=== PATIENT | female | born 1945 | race Caucasian/White ===

== ENCOUNTER 2024-09-13 12:15 | Inpatient (IN) | payer MEDICARE, OTHER, SELFPAY ==
[2024-09-13] VITALS (36 sets, daily range): BP systolic 97–153; BP diastolic 63–102; PULSE 74–183; TEMP 36.1–36.4; O2SAT 63–100; BMI 32.3; BMI 18.0
--- NOTE | 2024-09-13 12:19 | XR_ITS ---
The [address] [address] Patient Name: FARZANA SEBASTIAN MRN: [id number] date: 1945 Sex: F Assigned Patient Location: ER Current Patient Location: ED.MAIN Accession/Order Number: [id number] Exam Date: 09/13/2024 12:15 Report Date: 09/13/2024 12:58 At the request of: WONG MILLER Procedure: XR chest 1V EXAM: Portable chest REASON FOR EXAM: Shortness of breath and weakness. TECHNIQUE: A portable frontal view of the chest was obtained. COMPARISON: None. FINDINGS: The lungs are well-inflated. Dense airspace consolidation is seen in the right lung base and patchy airspace consolidation is seen in the upper lobes. There is question of a small left pleural effusion. The heart is enlarged. There is no mass or pathologic adenopathy. Osseous structures are normal. XR/XR chest 1V IMPRESSION: The overall appearance is most consistent with multi lobar bilateral pneumonia. Note is made that a CTA chest chest is scheduled to be performed today, which will give further diagnostic information regarding the process occurring in the lungs. Electronically authenticated by: AAN LÓPEZ Date: 09/13/2024 12:58
--- NOTE | 2024-09-13 12:20 | CT_ITS ---
The [address] [address] Patient Name: FARZANA SEBASTIAN MRN: [id number] date: 1945 Sex: F Assigned Patient Location: ED.MAIN Current Patient Location: ED.MAIN Accession/Order Number: [id number] Exam Date: 09/13/2024 13:45 Report Date: 09/13/2024 14:11 At the request of: WONG MILLER Procedure: CT angio chest EXAM: CT angio chest HISTORY: sob COMPARISON: None. TECHNIQUE: Following the intravenous administration of 100 cc of Omnipaque 350, axial soft tissue windows of the chest were obtained with coronal and sagittal reformats. 3-D MIPS reconstructions were created and reviewed. CT dose reduction technique was used including Automated Exposure Control. Findings: The heart isn't enlarged. Coronary artery calcifications. No pericardial effusion. The thoracic aorta is normal caliber with mild atherosclerotic disease. There is adequate opacification of the pulmonary arteries. No evidence of pulmonary embolism. No evidence of pulmonary embolism. The central airways are patent. No pneumothorax. Moderate bilateral pleural effusions. Patchy groundglass opacities. Regions of interlobular septal thickening. Mild right middle lobe and bilateral lower lobe atelectasis. Large hiatal hernia. No aggressive sclerotic or lytic osseous lesions. Multilevel degenerative thoracic spondylosis. CT/CT angio chest IMPRESSION: 1. No pulmonary embolism. 2. Bilateral pleural effusions with patchy groundglass opacities and interlobular septal thickening likely relating to pulmonary edema. 3. Other nonemergent findings, as described above. Electronically authenticated by: BONIFACIO ANTONY Date: 09/13/2024 14:11
--- NOTE | 2024-09-13 12:21 | ECG_ITS ---
The [facility] Test Date: 2024-09-13 Pat Name: Indira Pereira Department: Room: - Gender: Female Attorney General: : 1945 Requested By: [id number] Order Number: [id number] Reading MD: BRIA BATISTA Measurements Intervals [place] Rate: 95 P: 56 VT: 184 QRS: -35 QRSD: 102 T: 57 QT: 360 QTc: 413 Interpretive Statements 1100 Sinus rhythm 3234 Anteroseptal myocardial infarction, age undetermined 7200 Abnormal left axis deviation 8101 Low QRS voltage in limb leads 9150 abnormal ECG No previous ECG available for comparison Electronically Signed On 09-16-2024 20:16:51 EST by BRIA BATISTA
--- NOTE | 2024-09-13 12:23 | ED_ITS ---
HPI HPI - General Adult General Chief complaint: Shortness of Breath/Dyspnea Stated complaint: GENERAL WEAKNESS Time Seen by Provider: 09/13/24 12:18 History of Present Illness HPI narrative: Patient is a 78-year-old female who is presenting to the ER from the [facility] with acute respiratory distress. Patient is there for hip fracture and hip infection. Approximately 1 hour prior to arrival, patient had more of an acute shortness of breath. Patient normally was wearing 4 L nasal cannula. Patient presented by EMS wearing a CPAP. Patient was given 2 DuoNeb breathing treatments prior to arrival. Patient has a 20-gauge IV in the left AC. Patient normally gets albuterol nebulizer treatments. Patient also is on Suboxone. Patient is on Wellbutrin, BuSpar. Patient is receiving IV vancomycin. It is reported by EMS that patient did have a hip fracture, and now she has an infection. Patient did have a fracture on July 21 of the left femur. It appears from looking at paperwork that patient may have had a fracture around a previous left hip replacement, this will be clarified with the patient when she is speaking better and able to talk better. Patient did arrive on a CPAP. Patient is responding and answering questions and following commands, GCS 15. Patient has recent diagnosis of pyoderma gangrenosum. Patient has history of anemia, CHF, hypokalemia, cardiomyopathy, pressure ulcers to the sacrum noted on July 21 of this year as well, multiple valve insufficiency. Is reported by EMS that patient is a full code. Patient did receive Solu- Medrol and 2 DuoNeb breathing treatments prior to arrival. All systems are negative except as noted/marked. All systems reviewed and otherwise negative. Nurses note and vital signs reviewed and patient is not hypoxic. General: The patient moderate respiratory distress, patient is able to speak in a few words at a time, patient does have a CPAP in place. Patient is resting uncomfortably on cart. Patient is not toxic, lethargic, or listless Skin: Warm, dry, no pallor noted. There is no rash noted. No petechiae, purpura. Skin was not assessed initially, skin will be assessed once respiratory status improves, and patient sweatpants will be taken down, placed in gown, and evaluate source Head: Normocephalic, atraumatic Eye: Normal conjunctiva, no drainage, EOMI. PERRL Ears, Nose, Mouth, and Throat: oral mucosa is moist. Nares patent. Mouth without vesicles. Cardiovascular: Increased regular Rate and Rhythm, no murmur, gallop, rub Respiratory: Patient is in mild to moderate distress respiratory;, + accessory muscle use, lungs are decreased bilateral, faint wheezing bilateral, minimal bilateral rales, no rhonchi Back: non-tender, no CVA tenderness bilaterally to percussion. No CT LS midline pain GI: no tenderness to palpation, no masses appreciated. No rebound, guarding, or rigidity noted. No distention Musculoskeletal: Patient has full range of motion of all of the extremities, no motor, sensory, or focal neurological deficits Neurological: A&O x4, normal speech Psychiatric: Cooperative Related Data Home Medications ?Medication ?Instructions ?Recorded ?Confirmed acetaminophen 500 mg capsule 1,000 mg PO Q8H PRN pain 09/13/24 09/13/24 albuterol sulfate 2.5 mg/3 mL 2.5 mg inhalation TID 09/13/24 09/13/24 (0.083 %) solution for nebulization alendronate 70 mg tablet 70 mg PO .COMPLEX 09/13/24 09/13/24 ascorbic acid (vitamin C) 500 mg 500 mg PO DAILY 09/13/24 09/13/24 tablet (C-500) buprenorphine 8 mg-naloxone 2 mg 1 film sublingual BID 09/13/24 09/13/24 sublingual film bupropion HCl 300 mg 24 hr tablet, 300 mg PO DAILY 09/13/24 09/13/24 extended release buspirone 5 mg tablet 5 mg PO BID 09/13/24 09/13/24 cholecalciferol (vitamin D3) 125 125 mcg PO DAILY 09/13/24 09/13/24 mcg (5,000 unit) capsule diclofenac sodium 1 % topical gel 2 g topical BID 09/13/24 09/13/24 duloxetine 60 mg capsule,delayed 60 mg PO DAILY 09/13/24 09/13/24 release (Cymbalta) ferrous sulfate 325 mg (65 mg 325 mg PO DAILY 09/13/24 09/13/24 iron) tablet (Feosol) gabapentin 800 mg tablet 800 mg PO BID 09/13/24 09/13/24 magnesium chloride 71.5 mg 71.5 mg PO DAILY 09/13/24 09/13/24 (magnesium chloride) tablet,delayed release (Nu-Mag) melatonin 5 mg capsule 5 mg PO .hs 09/13/24 09/13/24 meloxicam 7.5 mg tablet 7.5 mg PO DAILY 09/13/24 09/13/24 multivitamin (Daily Multi-Vitamin 1 tab PO DAILY 09/13/24 09/13/24 tablet) nystatin 100,000 unit/gram topical 1 applic topical BID 09/13/24 09/13/24 powder (Nyamyc) polyethylene glycol 3350 17 gram 17 g PO DAILY 09/13/24 09/13/24 oral powder packet (Gavilax) potassium chloride 20 mEq 20 meq PO DAILY 09/13/24 09/13/24 tablet,extended release (K-Tab) primidone 50 mg tablet 50 mg PO DAILY 09/13/24 09/13/24 sennosides 8.6 mg-docusate sodium 1 tab-cap PO BID 09/13/24 09/13/24 50 mg tablet (Docuzen) tramadol 50 mg tablet 50 mg PO BID 09/13/24 09/13/24 whey protein isolate 6 gram-25 1 ea PO DAILY 09/13/24 09/13/24 kcal/7 gram oral powder (Beneprotein) Allergies Allergy/AdvReac Type Severity Reaction Status Date / Time No Known Drug Allergies Allergy Verified 09/13/24 12:41 Opioid HPI Opioid Management Most Recent Opioid Data: Last Pain Scale 0 09/13/24 18:32 09/13/24 Last Pain Assessment 09/13/24 19:00 Last ORT Total Score 4 09/13/24 17:40 09/13/24 Last ORT Risk Category Moderate Risk 09/13/24 17:40 09/13/24 PFSH PFSH Social History Highest level of school completed/degree received: Bachelor's degree Little interest or pleasure in doing things: several days Feeling down, depressed, or hopeless: several days Do you think of yourself as: straight/heterosexual Gender Identity: female Exam Constitutional Vital Signs, click to edit/add: Last Vital Signs Temp 97.6 F 09/13/24 17:40 Pulse 83 09/13/24 17:40 Resp 18 09/13/24 17:40 BP 112/69 09/13/24 17:40 Pulse Ox 90 L 09/13/24 17:40 O2 Del Method Nasal Cannula 09/13/24 17:40 O2 Flow Rate 5 09/13/24 17:40 Course Vital Signs Vital signs: Vital Signs Pulse Rate 183 H 09/13/24 12:22 Respiratory Rate 24 H 09/13/24 12:22 Pulse Oximetry 88 L 09/13/24 12:22 Temperature 97.6 F 09/13/24 17:40 Pulse Rate 83 09/13/24 17:40 Respiratory Rate 18 09/13/24 17:40 Blood Pressure 112/69 09/13/24 17:40 Pulse Oximetry 90 L 09/13/24 17:40 Oxygen Delivery Method Nasal Cannula 09/13/24 17:40 Oxygen Delivery Flow Rate 5 09/13/24 17:40 Medical Decision Making MDM Narrative Medical decision making narrative: ABG was done initially, initial chest x-ray shows right lower lobe infiltrate. Patient will also have a CT of the chest secondary to recent fracture, patient has been in nursing facility and rehab to rule out PE. Additional paperwork has been obtained from the [facility]. Patient has been on vancomycin. It is noted that at 11:50 AM this morning, patient had sudden onset of acute respiratory distress, was dusky, wheezing, lower pulse ox on room air. Patient was on no oxygen prior to this event. Patient was placed on 4 L of oxygen when EMS had arrived. Patient has no known allergies. At 6:47 AM nurse documented at 647AM, patient was documented being lethargic with periods of confusion, occasional cough with scattered rhonchi, PCP was notified. New orders for urine culture and chest x-ray were placed. This was documented by Ileana Atkins, RN, BSN. 1400 patient has been receiving vancomycin. IV Zosyn has been ordered since patient has been in a rehab facility, nursing facility. CTA chest is still pe nding. CTA showed no obvious infiltrates, no PE. It did show bilateral small pleural effusions and possible early edema. Patient BNP is elevated. Wounds were evaluated. Patient has healing wounds to bilateral lower extremities, patient states are doing much better now than what they are. Patient has stage I and II ulcerations to anterior shins bilateral, wound dressings were just done today by wound care at the nursing facility at the [facility]. The wounds were taken down, but the Xeroform dressing was not removed. Patient also has a healing wound to left buttock, the dressing was evaluated, but the Xeroform dressing was not removed because they were just changes morning at the [facility]. Patient has diffuse stage I ulceration to her sacrum, no stage II signs. Patient states all of her wounds are doing much better than what they were. Patient has been receiving vancomycin for infected hardware where that was removed and replaced in the left leg. Patient was given a dose of Zosyn for what I thought initially was pneumonia on chest x-ray. Patient will be admitted for hypoxia, she is currently wearing 4 to 5 L of oxygen, maintaining over 92% but she does not normally wear oxygen. Patient be admitted to Dr. Cerrato. Dr. Cerrato came to see and evaluate the patient in the hospital in the ER. Multiple bedside visits were made to readdress and assess patient's oxygen, Talk to respiratory staff, help wean patient off the CPAP, help with oxygen settings, evaluating wounds, performing test, speaking to Dr. Mehta, admitting patient to the hospital Lab Data Lab results reviewed: Yes I reviewed the patient's lab results Labs: Lab Results 09/13/24 09/13/24 09/13/24 Range/Units 12:25 12:35 13:04 WBC 9.8 (4.0-11.0) 10^3/uL RBC 3.50 L (4.20-5.40) 10^6/uL Hgb 9.3 L (12.0-16.0) g/dL Hct 31.8 L (36.0-48.0) % MCV 90.9 (81.0-99.0) fL MCH 26.6 L (26.7-34.0) pg MCHC 29.2 L (29.9-35.2) g/dL RDW 16.4 H (11.0-15.0) % Plt Count 333 (150-450) 10^3/uL MPV 9.2 L (9.5-13.5) fL Neut % (Auto) 70.4 (43.0-75.0) % Lymph % (Auto) 22.7 (20.5-60.0) % [place] % (Auto) 5.3 (1.7-12.0) % Eos % (Auto) 0.9 (0.9-7.0) % Baso % (Auto) 0.2 (0.2-2.0) % Neut # (Auto) 6.9 H (1.4-6.5) 10^3/uL Lymph # (Auto) 2.2 (1.2-3.8) 10^3/uL [place] # (Auto) 0.5 (0.3-0.8) 10^3/uL Eos # (Auto) 0.1 (0.0-0.7) 10^3/uL Baso # (Auto) 0.0 (0.0-0.1) 10^3/uL Abs Immat Gran (auto) 0.05 H (0.00-0.03) 10^3/uL Imm/Tot Granulo (auto) 0.5 (0.0-0.5) % PT 12.4 H (9.0-11.6) sec INR 1.19 Puncture Site Lr ABG pH 7.358 (7.350-7.450) ABG pCO2 39.8 (35.0-45.0) mmHg ABG pO2 39.8 L* (80.0-100.0) mmHg ABG HCO3 22.4 (22.0-26.0) mmol/L ABG O2 Saturation 83.3 % ABG Base Excess -3.1 L (-2.0-2.0) mmol/L [place] Test Positive (POSITIVE) Expiratory Pressure +5 Sodium 134 L (136-145) mmol/L Potassium 4.8 (3.5-5.1) mmol/L Chloride 100 (98-107) mmol/L Carbon Dioxide 27.3 (21.0-32.0) mmol/L Anion Gap 11.5 BUN 20.0 H (7.0-18.0) mg/dL Creatinine 0.89 (0.55-1.02) mg/dL Est GFR ( Amer) >60 (>=60 mL/min/1.73m^2) Est GFR (Non-Af Amer) >60 (>=60 mL/min/1.73m^2) BUN/Creatinine Ratio 22.5 Glucose 151 H (74-106) mg/dL Lactate 2.9 H* (0.4-2.0) mmol/L Calcium 8.9 (8.5-10.1) mg/dL Total Bilirubin 0.5 (0.2-1.0) mg/dL AST 64 H (15-37) U/L ALT 20 (14-59) U/L Alkaline Phosphatase 374 H (46-116) U/L Troponin I High Sens 16.8 (4.0-51.3) pg/mL NT-Pro-B Natriuret Pep 53306.0 H* (<=1800.0) pg/mL Total Protein 6.6 (6.4-8.2) g/dL Albumin 2.0 L (3.4-5.0) g/dL Globulin 4.6 g/dL Albumin/Globulin Ratio 0.4 TSH 6.417 H (0.358-3.740) uIU/mL Thyroxine (T4) 6.10 (4.80-13.90) ug/dL POC Glucose 124 H (74-106) mg/dL I believe patient's blood gas is a venous blood gas, not arterial. Patient's pH was 7.35, O2 39, oxygen was low. BNP 14,300. Imaging Data CT scan - pelvis: Radiologist's impression: ITS Impressions Chest X-Ray 09/13/24 12:19 IMPRESSION: The overall appearance is most consistent with multi lobar bilateral pneumonia. Note is made that a CTA chest chest is scheduled to be performed today, which will give further diagnostic information regarding the process occurring in the lungs. Electronically authenticated by: ANA LÓPEZ Date: 09/13/2024 12:58 Chest CTA 09/13/24 12:20 IMPRESSION: 1. No pulmonary embolism. 2. Bilateral pleural effusions with patchy groundglass opacities and interlobular septal thickening likely relating to pulmonary edema. 3. Other nonemergent findings, as described above. Electronically authenticated by: BONIFACIO ANTONY Date: 09/13/2024 14:11 ECG Data Attestation: I personally reviewed and interpreted this ECG as follows: (EKG interpretation. Normal sinus rhythm at 95 beats a minute. Artifact noted secondary to respiratory distress. Left axis deviation. QTc of 413. Artifact noted. ) Discharge Plan Discharge Chief Complaint: Shortness of Breath/Dyspnea Clinical Impression: Hypoxia, Bilateral pneumonia Patient Disposition: Admitted As Inpatient Time of Disposition Decision: 14:10 Condition: Fair Discharge Date/Time: 09/13/24 16:30
[2024-09-13 12:36] LABS: pH ABG 7.358 (7.350-7.450)
[2024-09-13 12:37] LABS: ABG PCO2 39.8 mmHg (35.0-45.0); Allen Test POSITIVE (POSITIVE); Base Excess ABG -3.1 mmol/L (-2.0-2.0); HCO3 ABG 22.4 mmol/L (22.0-26.0); O2 Mode CPAP; Oxygen Saturation ABG 83.3 %; Puncture Site LR
[2024-09-13 12:39] LABS: PO2 ABG 39.8 mmHg (80.0-100.0)
[2024-09-13 12:47] LABS: Basophils Percent Auto 0.2 % (0.2-2.0); Eosinophils Absolute Auto 0.1 10^3/uL (0.0-0.7); Eosinophils Percent Auto 0.9 % (0.9-7.0); Hematocrit 31.8 % (36.0-48.0); Hemoglobin 9.3 g/dL (12.0-16.0); Immature Granulocytes Abs Auto 0.05 10^3/uL (0.00-0.03); Immature Granulocytes Pct Auto 0.5 % (0.0-0.5); Lymphocytes Absolute Auto 2.2 10^3/uL (1.2-3.8); Lymphocytes Percent Auto 22.7 % (20.5-60.0); Mean Corpuscular HGB Conc 29.2 g/dL (29.9-35.2); Mean Corpuscular Hemoglobin 26.6 pg (26.7-34.0); Mean Corpuscular Volume 90.9 fL (81.0-99.0); Mean Platelet Volume 9.2 fL (9.5-13.5); Monocytes Absolute Auto 0.5 10^3/uL (0.3-0.8); Monocytes Percent Auto 5.3 % (1.7-12.0); Neutrophils Absolute Auto 6.9 10^3/uL (1.4-6.5); Neutrophils Percent Auto 70.4 % (43.0-75.0); Platelet Count 333 10^3/uL (150-450); Red Cell Distribution Width 16.4 % (11.0-15.0); White Blood Count 9.8 10^3/uL (4.0-11.0)
[2024-09-13] MEDS: ONDANSETRON PF 4 MG/2 ML VIAL 8 MG IV (12:55)
[2024-09-13 13:00] LABS: INR 1.19; Prothrombin Time 12.4 sec (9.0-11.6)
[2024-09-13 13:03] LABS: Alanine Aminotransferase 20 U/L (14-59); Albumin Globulin Ratio 0.4; Alkaline Phosphatase 374 U/L (46-116); Anion Gap 11.5; Aspartate Amino Transferase 64 U/L (15-37); BUN Creatinine Ratio 22.5; Bilirubin Total 0.5 mg/dL (0.2-1.0); Calcium 8.9 mg/dL (8.5-10.1); Carbon Dioxide 27.3 mmol/L (21.0-32.0); Chloride 100 mmol/L (98-107); Estimated GFR (African America >60 (>=60 mL/min/1.73m^2); Estimated GFR (Non-African Ame >60 (>=60 mL/min/1.73m^2); Globulin 4.6 g/dL; Glucose 151 mg/dL (74-106); Potassium 4.8 mmol/L (3.5-5.1); Sodium 134 mmol/L (136-145); Total Protein 6.6 g/dL (6.4-8.2)
[2024-09-13 13:09] LABS: Troponin I High Sensitivity 16.8 pg/mL (4.0-51.3)
[2024-09-13 13:14] LABS: Glucometer 124 mg/dL (74-106)
--- NOTE | 2024-09-13 14:19 | SWNOTE1 ---
SW received a call from ED nurse and pt's daughter is asking about [facility] making them pay to hold bed. SW to go down and speak with daughter. Pt is at [facility] for rehab.
[2024-09-13] MEDS: PIPERACILLIN SODIUM/TAZOBACTAM 3.375 GM in 0.9 % SODIUM CHLORIDE 50 ML IV ×2 (14:25→21:49)
--- NOTE | 2024-09-13 15:23 | SWNOTE1 ---
SW received a call from Yash at [facility] and pt/family did not pay to hold the bed, therefore if pt is medically stable for discharge, a phone call will need to be made to [facility] and they will have to see if they have bed availability. If not a new facility will need to be found for pt to go to rehab.
[2024-09-13] MEDS: BUPRENORPHINE HCL/NALOXONE HCL 8-2 MG TABLET SUBL 1 TAB PO (16:28)
--- NOTE | 2024-09-13 16:58 | P.HP_ITS ---
HPI H&P: HPI History of Present Illness Chief complaint: WEAKNESS pneumonia, pleural effusion, hypoxia Narrative: Patient currently in a rehabilitation facility for hip fracture, started having increasing cough and shortness of breath. Patient found to have acute hypoxia with O2 sat of 81%, multifocal pneumonia with acute combined congestive heart failure and bilateral pleural effusions. When I saw patient in the medical surgical floor, resting fairly uncomfortably in bed, she is very cachectic, some moderate respiratory distress. She does state her breathing is feeling somewhat better. Opioid HPI Opioid Management Most Recent Pain and Opioid Data: Last Pain Scale 0 09/13/24 18:32 09/13/24 Last Pain Assessment 09/13/24 19:00 Last ORT Total Score 4 09/13/24 17:40 09/13/24 Last ORT Risk Category Moderate Risk 09/13/24 17:40 09/13/24 Review of Systems ROS Status of ROS 10 or more systems reviewed and unremark able except as noted in history and below PFSH PFSH Social History Highest level of school completed/degree received: Bachelor's degree Little interest or pleasure in doing things: several days Feeling down, depressed, or hopeless: several days Do you think of yourself as: straight/heterosexual Gender Identity: female Meds Home Medications and Allergies Home Medications ?Medication ?Instructions ?Recorded ?Confirmed ?Type acetaminophen 500 mg capsule 1,000 mg PO Q8H PRN pain 09/13/24 09/13/24 History albuterol sulfate 2.5 mg/3 mL 2.5 mg inhalation TID 09/13/24 09/13/24 History (0.083 %) solution for nebulization alendronate 70 mg tablet 70 mg PO .COMPLEX 09/13/24 09/13/24 History ascorbic acid (vitamin C) 500 mg 500 mg PO DAILY 09/13/24 09/13/24 History tablet (C-500) buprenorphine 8 mg-naloxone 2 mg 1 film sublingual BID 09/13/24 09/13/24 History sublingual film bupropion HCl 300 mg 24 hr tablet, 300 mg PO DAILY 09/13/24 09/13/24 History extended release buspirone 5 mg tablet 5 mg PO BID 09/13/24 09/13/24 History cholecalciferol (vitamin D3) 125 125 mcg PO DAILY 09/13/24 09/13/24 History mcg (5,000 unit) capsule diclofenac sodium 1 % topical gel 2 g topical BID 09/13/24 09/13/24 History duloxetine 60 mg capsule,delayed 60 mg PO DAILY 09/13/24 09/13/24 History release (Cymbalta) ferrous sulfate 325 mg (65 mg 325 mg PO DAILY 09/13/24 09/13/24 History iron) tablet (Feosol) gabapentin 800 mg tablet 800 mg PO BID 09/13/24 09/13/24 History magnesium chloride 71.5 mg 71.5 mg PO DAILY 09/13/24 09/13/24 History (magnesium chloride) tablet,delayed release (Nu-Mag) melatonin 5 mg capsule 5 mg PO .hs 09/13/24 09/13/24 History meloxicam 7.5 mg tablet 7.5 mg PO DAILY 09/13/24 09/13/24 History multivitamin (Daily Multi-Vitamin 1 tab PO DAILY 09/13/24 09/13/24 History tablet) nystatin 100,000 unit/gram topical 1 applic topical BID 09/13/24 09/13/24 History powder (Nyamyc) polyethylene glycol 3350 17 gram 17 g PO DAILY 09/13/24 09/13/24 History oral powder packet (Gavilax) potassium chloride 20 mEq 20 meq PO DAILY 09/13/24 09/13/24 History tablet,extended release (K-Tab) primidone 50 mg tablet 50 mg PO DAILY 09/13/24 09/13/24 History sennosides 8.6 mg-docusate sodium 1 tab-cap PO BID 09/13/24 09/13/24 History 50 mg tablet (Docuzen) tramadol 50 mg tablet 50 mg PO BID 09/13/24 09/13/24 History whey protein isolate 6 gram-25 1 ea PO DAILY 09/13/24 09/13/24 History kcal/7 gram oral powder (Beneprotein) Allergies Allergy/AdvReac Type Severity Reaction Status Date / Time No Known Drug Allergies Allergy Verified 09/13/24 12:41 Exam Constitutional Vital Signs, click to edit/add: Last Vital Signs Temp 97.0 F L 09/13/24 12:41 Pulse 88 09/13/24 16:20 Resp 13 09/13/24 16:20 BP 115/63 09/13/24 16:00 Pulse Ox 92 L 09/13/24 16:00 O2 Del Method CPAP 09/13/24 12:47 Documenting provider has reviewed patient's vital signs: yes Common normals: apparent distress (Moderate respiratory distress) Respiratory Common normals: abnormal respiratory effort (Moderate respiratory distress) Auscultation: rales and rhonchi Cardio Common normals: regular rhythm; irregular rate GI Common normals: Normal to inspection, nondistended, normoactive bowel sounds present Extremity Common normals: normal to inspection Results Labs Labs: Short CBC 09/13/24 Range/Units 12:35 WBC 9.8 (4.0-11.0) 10^3/uL Hgb 9.3 L (12.0-16.0) g/dL Hct 31.8 L (36.0-48.0) % Plt Count 333 (150-450) 10^3/uL BMP 09/13/24 12:35 Sodium 134 L Potassium 4.8 Chloride 100 Carbon Dioxide 27.3 BUN 20.0 H Creatinine 0.89 Glucose 151 H Calcium 8.9 Liver Function 09/13/24 Range/Units 12:35 Total Bilirubin 0.5 (0.2-1.0) mg/dL AST 64 H (15-37) U/L ALT 20 (14-59) U/L Alkaline Phosphatase 374 H (46-116) U/L Albumin 2.0 L (3.4-5.0) g/dL ABG ABG results: 09/13/24 12:25 ABG pH 7.358 ABG pCO2 39.8 ABG pO2 39.8 L* ABG HCO3 22.4 ABG O2 Saturation 83.3 ABG Base Excess -3.1 L Assessment and Plan Assessment and Plan (1) Bilateral pneumonia: (2) Hypoxia: Plan Admission findings: Uncontrolled hypertension, acute hypoxia with O2 sat of 81%, respiratory distress, elevated BNP, leukocytosis, elevated liver function tests, multifocal pneumonia on CT scan with acute combined congestive heart failure Acute combined congestive heart failure likely secondary to the pneumonia. IV Bumex tonight. Adjust dose or alternate medications in AM. Repeat BNP in a.m., also repeat high-sensitivity troponin Acute hypoxic respiratory failure secondary to multifocal pneumonia-IV antibiotics, try to obtain sputum culture, repeat CBC in a.m. Depression-continue with home medications Iron deficiency anemia follow daily Chronic pain syndrome-continue with home medications Admission status: Patient with acute hypoxic respiratory failure secondary to multifocal pneumonia leading to acute combined congestive heart failure-likely necessary treatment will span 2 midnights. Inpatient status.
[2024-09-13 17:36] LABS: Lactate/Lactic Acid 2.9 mmol/L (0.4-2.0)
[2024-09-13 17:57] LABS: Thyroid Stimulating Hormone 6.417 uIU/mL (0.358-3.740)
[2024-09-13] MEDS: IPRATROPIUM/ALBUTEROL SULFATE 3 ML AMPUL.NEB IH ×2 (19:52→23:12)
[2024-09-13] MEDS: METHYLPREDNISOLONE SOD SUCC PF 125 MG/2 ML VIAL IVP (19:53)
[2024-09-13] MEDS: LEVOFLOXACIN IN DEXTROSE 5 % 500 MG/100 ML PREMIX 100 MG IV (19:54)
[2024-09-13 20:00] LABS: Lactate/Lactic Acid 1.8 mmol/L (0.4-2.0)
[2024-09-13] MEDS: BUMETANIDE 10 MG in 0.9 % SODIUM CHLORIDE 160 ML 20 MG IV (20:30)
[2024-09-13 21:02] LABS: Influenza Virus A Antigen Negative; Influenza Virus B Antigen Negative; Internal Control Within Normal Limits; SARS-CoV-2 Ag NEGATIVE (NEGATIVE)
[2024-09-13 21:16] LABS: Glucometer 155 mg/dL (74-106)
[2024-09-13 21:32] LABS: Bilirubin Urine NEGATIVE (NEGATIVE); Blood Urine NEGATIVE (NEGATIVE); Clarity Urine CLEAR (CLEAR); Color Urine YELLOW (YELLOW); Glucose Urine UA NEGATIVE (NEGATIVE); Ketones Urine NEGATIVE (NEGATIVE); Leukocyte Esterase Urine NEGATIVE (NEGATIVE); Nitrite Urine NEGATIVE (NEGATIVE); Protein Urine 30 mg/dL (NEG/TRACE); Specific Gravity Urine 1.015 (1.005-1.025); Urobilinogen Urine 0.2 EU/dL (0.2-1.0)
[2024-09-13] MEDS: GABAPENTIN 400 MG CAPSULE 800 MG PO (21:40)
[2024-09-13 21:41] LABS: Bacteria Urine TRACE #/HPF (NONE SEEN); Cast Seen? NONE SEEN #/LPF (NONE SEEN); Crystals Seen? None Seen #/HPF (None Seen); Mucus Urine SMALL (NONE SEEN); RBC Urine 0-2 #/HPF (0-2); Squamous Epithelial Cell Urine MODERATE #/LPF (NONE/RARE); WBC Urine 0-2 #/HPF (NONE SEEN)
[2024-09-13] MEDS: SENNOSIDES/DOCUSATE SODIUM 1 TAB TABLET PO (21:41)
[2024-09-13] MEDS: PRIMIDONE 50 MG TABLET PO (21:41)
[2024-09-13] MEDS: BUSPIRONE HCL 10 MG TABLET 5 MG PO (21:41)
[2024-09-13] MEDS: PANTOPRAZOLE SODIUM 40 MG VIAL IV (21:46)
[2024-09-13] MEDS: INSULIN ASPART 300 UNIT/3 ML PEN SUBQ (21:47)
[2024-09-14] VITALS (23 sets, daily range): BP systolic 90–145; BP diastolic 62–83; PULSE 53–125; TEMP 36.2–36.7; O2SAT 72–99
[2024-09-14] MEDS: METHYLPREDNISOLONE SOD SUCC PF 125 MG/2 ML VIAL IVP ×2 (03:14→10:18)
[2024-09-14] MEDS: IPRATROPIUM/ALBUTEROL SULFATE 3 ML AMPUL.NEB IH ×2 (04:09→07:46)
[2024-09-14] MEDS: PIPERACILLIN SODIUM/TAZOBACTAM 3.375 GM in 0.9 % SODIUM CHLORIDE 50 ML IV (05:09)
[2024-09-14 06:58] LABS: Basophils Percent Auto 0.1 % (0.2-2.0); Hematocrit 38.8 % (36.0-48.0); Hemoglobin 11.7 g/dL (12.0-16.0); Immature Granulocytes Abs Auto 0.02 10^3/uL (0.00-0.03); Immature Granulocytes Pct Auto 0.2 % (0.0-0.5); Lymphocytes Absolute Auto 0.4 10^3/uL (1.2-3.8); Lymphocytes Percent Auto 5.4 % (20.5-60.0); Mean Corpuscular HGB Conc 30.2 g/dL (29.9-35.2); Mean Corpuscular Hemoglobin 26.5 pg (26.7-34.0); Mean Platelet Volume 9.3 fL (9.5-13.5); Monocytes Absolute Auto 0.2 10^3/uL (0.3-0.8); Neutrophils Absolute Auto 7.5 10^3/uL (1.4-6.5); Neutrophils Percent Auto 92.3 % (43.0-75.0); Platelet Count 304 10^3/uL (150-450); Red Blood Count 4.41 10^6/uL (4.20-5.40); Red Cell Distribution Width 15.9 % (11.0-15.0); White Blood Count 8.1 10^3/uL (4.0-11.0)
[2024-09-14 07:26] LABS: Alanine Aminotransferase 23 U/L (14-59); Albumin Globulin Ratio 0.4; Alkaline Phosphatase 321 U/L (46-116); Anion Gap 14.9; Aspartate Amino Transferase 45 U/L (15-37); BUN Creatinine Ratio 22.2; Bilirubin Total 0.4 mg/dL (0.2-1.0); Calcium 9.1 mg/dL (8.5-10.1); Carbon Dioxide 27.5 mmol/L (21.0-32.0); Chloride 99 mmol/L (98-107); Estimated GFR (African America >60 (>=60 mL/min/1.73m^2); Estimated GFR (Non-African Ame >60 (>=60 mL/min/1.73m^2); Globulin 4.7 g/dL; Glucose 123 mg/dL (74-106); Potassium 3.4 mmol/L (3.5-5.1); Sodium 138 mmol/L (136-145); Total Protein 6.7 g/dL (6.4-8.2); Troponin I High Sensitivity 12.7 pg/mL (4.0-51.3)
[2024-09-14 08:28] LABS: Glucometer 118 mg/dL (74-106)
[2024-09-14] MEDS: POLYETHYLENE GLYCOL 3350 17 GM POWDER PACKET PO (10:18)
[2024-09-14] MEDS: BUPROPION HCL 150 MG XL TABLET 24H 300 MG PO (10:18)
[2024-09-14] MEDS: DULOXETINE HCL 60 MG CAPSULE.DR PO (10:18)
[2024-09-14] MEDS: GABAPENTIN 400 MG CAPSULE 800 MG PO ×2 (10:19→22:33)
[2024-09-14] MEDS: MELOXICAM 7.5 MG TABLET PO (10:19)
[2024-09-14] MEDS: POTASSIUM CHLORIDE 10 MEQ ER TABLET 20 MEQ PO (10:19)
[2024-09-14] MEDS: SENNOSIDES/DOCUSATE SODIUM 1 TAB TABLET PO ×2 (10:19→22:33)
[2024-09-14] MEDS: MULTIVITAMIN TABLET 1 TAB PO (10:19)
[2024-09-14] MEDS: CHOLECALCIFEROL (VITAMIN D3) 125 MCG/5,000 UNIT TABLET PO (10:19)
[2024-09-14] MEDS: ASCORBIC ACID 500 MG TABLET PO (10:19)
[2024-09-14] MEDS: BUSPIRONE HCL 10 MG TABLET 5 MG PO ×2 (10:20→22:34)
[2024-09-14] MEDS: FERROUS SULFATE 325 MG TABLET PO (10:20)
[2024-09-14] MEDS: MAGNESIUM OXIDE 400 MG TABLET PO (10:20)
[2024-09-14] MEDS: BUPRENORPHINE HCL/NALOXONE HCL 8-2 MG TABLET SUBL 1 TAB SL ×2 (10:20→22:34)
[2024-09-14] MEDS: NYSTATIN 15 GM POWDER 1 APPLIC TOPICAL ×2 (10:21→22:36)
[2024-09-14] MEDS: DICLOFENAC SODIUM 1% 100 GM TUBE TOPICAL ×2 (10:22→22:36)
[2024-09-14 12:26] LABS: Glucometer 213 mg/dL (74-106)
[2024-09-14] MEDS: FUROSEMIDE 40 MG/4 ML VIAL IVP ×2 (12:33→22:33)
[2024-09-14] MEDS: INSULIN ASPART 300 UNIT/3 ML PEN SUBQ ×3 (12:34→22:35)
[2024-09-14] MEDS: OMEPRAZOLE 40 MG CAPSULE.DR PO (14:32)
[2024-09-14 16:31] LABS: Glucometer 153 mg/dL (74-106)
[2024-09-14] MEDS: METHYLPREDNISOLONE SOD SUCC PF 40 MG/ML VIAL IVP (19:40)
--- NOTE | 2024-09-14 21:29 | P.IMPN_ITS ---
Progress Note: A&P Assessment and Plan (1) Acute respiratory failure with hypoxia: Assessment and Plan: Improving. Now down to 2 L. Monitor closely. Wean off O2 as tolerated. (2) Acute on chronic diastolic (congestive) heart failure: Assessment and Plan: Volume overload on exam. Was on Bumex drip. Switch to IV lasix 40 q12. Monitor I/O, daily weight. ECHO pending. Repeat XR tomorrow. (3) Bilateral pneumonia: Assessment and Plan: Low suspicion for PNA. D/c Abx. Monitor w/o abx. Qualifiers: Pneumonia type: due to unspecified organism Lung location: unspecified part of lung Qualified Code(s): J18.9 - Pneumonia, unspecified organism (4) GERD (gastroesophageal reflux disease): Assessment and Plan: C/w omeprazole. Qualifiers: Esophagitis presence: without esophagitis Qualified Code(s): K21.9 - Gastro-esophageal reflux disease without esophagitis (5) Depression: Assessment and Plan: Stable mood. C/w home medications. Qualifiers: Depression Type: major depressive disorder Major depression recurrence: recurrent Active/Remission status: in full remission Qualified Code(s): F33.42 - Major depressive disorder, recurrent, in full remission (6) Severe protein-calorie malnutrition: Assessment and Plan: Poor nutritional status likely due to chronic disease burden, has low BMI of only 16, evidence of severe malnutrition with muscle wasting, loss of subcutaneous fat. Started on ensure. (7) Ambulatory dysfunction: Assessment and Plan: More or less bed bound since her Hip fracture last year. PT/OT eval. (8) Chronic skin ulcer, limited to breakdown of skin: Assessment and Plan: Chronic, improving as per patient. no signs of infection. c/w wound care, consult wound. Internal Medicine - PN: Subj Subjective Interval history: Seen and examined. Patient subjectively feeling better. Still SOB at rest and on exertion. Was on 4 L O2 in the morning and was subsequently titrated down to 2 L. No overnight events. Exam Constitutional Vital Signs, click to edit/add: Last Vital Signs Temp 97.6 F 09/14/24 19:43 Pulse 95 H 09/14/24 20:00 Resp 20 09/14/24 19:43 BP 90/62 09/14/24 19:43 Pulse Ox 93 L 09/14/24 20:17 O2 Del Method Nasal Cannula 09/14/24 20:17 O2 Flow Rate 2 09/14/24 20:17 General appearance: cooperative and comfortable Nutritional appearance: cachectic and underweight Respiratory Common normals: normal respiratory effort Other: Conversational dyspnea noted. Diminished lung sounds. Corae breath sounds. Cardio Common normals: regular rate, regular rhythm, S1 normal heart sound and S2 normal heart sound GI Common normals: Normal to inspection, nondistended, normoactive bowel sounds present, soft to palpation and non-tender Extremity Other: Chronic skin ulcerations b/l LE. Neuro Common normals: oriented x3, moves all extremities and no focal motor deficits Psych Common normals: mental status grossly normal, thought process normal, denies homicidal ideation and denies suicidal ideation Internal Medicine - PN: Obj Da Labs Labs: Laboratory Results - last 24 hr 09/13/24 09/14/24 09/14/24 20:45 06:43 08:26 WBC 8.1 RBC 4.41 Hgb 11.7 L Hct 38.8 MCV 88.0 MCH 26.5 L MCHC 30.2 RDW 15.9 H Plt Count 304 MPV 9.3 L Neut % (Auto) 92.3 H Lymph % (Auto) 5.4 L [place] % (Auto) 2.0 Eos % (Auto) 0.0 L Baso % (Auto) 0.1 L Neut # (Auto) 7.5 H Lymph # (Auto) 0.4 L [place] # (Auto) 0.2 L Eos # (Auto) 0.0 Baso # (Auto) 0.0 Abs Immat Gran (auto) 0.02 Imm/Tot Granulo (auto) 0.2 Sodium 138 Potassium 3.4 L Chloride 99 Carbon Dioxide 27.5 Anion Gap 14.9 BUN 18.0 Creatinine 0.81 Est GFR ( Amer) >60 Est GFR (Non-Af Amer) >60 BUN/Creatinine Ratio 22.2 Glucose 123 H Calcium 9.1 Total Bilirubin 0.4 AST 45 H ALT 23 Alkaline Phosphatase 321 H Troponin I High Sens 12.7 NT-Pro-B Natriuret Pep 16305.0 H* Total Protein 6.7 Albumin 2.0 L Globulin 4.7 Albumin/Globulin Ratio 0.4 Urine Color Yellow Urine Clarity Clear Urine pH 7.0 Ur Specific [place] 1.015 Urine Protein 30 A Urine Glucose (UA) Negative Urine Ketones Negative Urine Occult Blood Negative Urine Nitrite Negative Urine Bilirubin Negative Urine Urobilinogen 0.2 Ur Leukocyte Esterase Negative Urine RBC 0-2 Urine WBC 0-2 A Ur Squamous Epith Cells Moderate A Urine Crystals None seen Urine Bacteria Trace A Urine Casts None seen Urine Mucus Small A POC Glucose 118 H 09/14/24 09/14/24 12:23 16:25 WBC RBC Hgb Hct MCV MCH MCHC RDW Plt Count MPV Neut % (Auto) Lymph % (Auto) [place] % (Auto) Eos % (Auto) Baso % (Auto) Neut # (Auto) Lymph # (Auto) [place] # (Auto) Eos # (Auto) Baso # (Auto) Abs Immat Gran (auto) Imm/Tot Granulo (auto) Sodium Potassium Chloride Carbon Dioxide Anion Gap BUN Creatinine Est GFR ( Amer) Est GFR (Non-Af Amer) BUN/Creatinine Ratio Glucose Calcium Total Bilirubin AST ALT Alkaline Phosphatase Troponin I High Sens NT-Pro-B Natriuret Pep Total Protein Albumin Globulin Albumin/Globulin Ratio Urine Color Urine Clarity Urine pH Ur Specific [place] Urine Protein Urine Glucose (UA) Urine Ketones Urine Occult Blood Urine Nitrite Urine Bilirubin Urine Urobilinogen Ur Leukocyte Esterase Urine RBC Urine WBC Ur Squamous Epith Cells Urine Crystals Urine Bacteria Urine Casts Urine Mucus POC Glucose 213 H 153 H Urinary Catheter Management Urinary Catheter Management Urethral: Cath placed during this visit: yes Urethral indwelling: Yes Reason for continuing: measure accurate output Insertion date: 09/13/24 Insertion time: 18:00
[2024-09-14 21:49] LABS: Glucometer 155 mg/dL (74-106)
[2024-09-14] MEDS: PRIMIDONE 50 MG TABLET PO (22:34)
[2024-09-14] MEDS: INSULIN GLARGINE 300 UNIT/3 ML INSULN.PEN 10 UNIT SQ (22:34)
[2024-09-15] VITALS (21 sets, daily range): BP systolic 100–111; BP diastolic 54–65; PULSE 60–117; TEMP 36.3–36.9; O2SAT 88–100
--- NOTE | 2024-09-15 06:00 | XR_ITS ---
The [address] [address] Patient Name: FARZANA SEBASTIAN MRN: [id number] date: 1945 Sex: F Assigned Patient Location: Current Patient Location: Accession/Order Number: [id number] Exam Date: 09/15/2024 06:05 Report Date: 09/15/2024 08:54 At the request of: SHAIKH DILMA Procedure: XR chest 1V EXAM: XR chest 1V HISTORY: CHF COMPARISON: Chest radiograph dated 09/13/2024 and CTA chest dated 09/13/2024. TECHNIQUE: AP semierect portable chest radiograph performed. FINDINGS: Stable moderate enlargement of the cardiac silhouette. Stable prominence of the mediastinal silhouette, accentuated by rotation of the patient to the right. Stable moderate elevation of the right hemidiaphragm. There is stable patchy airspace disease scattered throughout the right chest and within the left mid upper chest. Dense consolidation within the right mid chest suggesting atelectasis and/or infiltrate. Stable opacification of the retrocardiac left lung base. The large bilateral pleural effusions seen on the CTA chest examination are not well visualized and most likely are obscured. There is no pneumothorax or acute osseous abnormality. XR/XR chest 1V IMPRESSION: Stable patchy airspace disease throughout the right chest and within the left mid and upper chest. Stable moderate elevation of the right hemidiaphragm with dense consolidation within the right mid chest suggesting atelectasis and/or infiltrate. Stable opacification of the retrocardiac left lung base. The large bilateral pleural effusions seen on the previous CTA chest examination are not well visualized and most likely are obscured. Electronically authenticated by: CATHI ADHIKARI Date: 09/15/2024 08:54
[2024-09-15 06:59] LABS: Basophils Percent Auto 0.2 % (0.2-2.0); Hematocrit 32.2 % (36.0-48.0); Hemoglobin 9.9 g/dL (12.0-16.0); Immature Granulocytes Abs Auto 0.06 10^3/uL (0.00-0.03); Immature Granulocytes Pct Auto 0.5 % (0.0-0.5); Lymphocytes Absolute Auto 0.8 10^3/uL (1.2-3.8); Lymphocytes Percent Auto 7.2 % (20.5-60.0); Mean Corpuscular HGB Conc 30.7 g/dL (29.9-35.2); Mean Corpuscular Hemoglobin 26.5 pg (26.7-34.0); Mean Corpuscular Volume 86.1 fL (81.0-99.0); Mean Platelet Volume 9.5 fL (9.5-13.5); Monocytes Absolute Auto 0.3 10^3/uL (0.3-0.8); Monocytes Percent Auto 2.9 % (1.7-12.0); Neutrophils Percent Auto 89.2 % (43.0-75.0); Platelet Count 289 10^3/uL (150-450); Red Blood Count 3.74 10^6/uL (4.20-5.40); White Blood Count 11.2 10^3/uL (4.0-11.0)
[2024-09-15 07:13] LABS: Alanine Aminotransferase 22 U/L (14-59); Albumin Globulin Ratio 0.4; Alkaline Phosphatase 247 U/L (46-116); Anion Gap 13.3; Aspartate Amino Transferase 35 U/L (15-37); BUN Creatinine Ratio 24.3; Bilirubin Total 0.3 mg/dL (0.2-1.0); Calcium 7.8 mg/dL (8.5-10.1); Carbon Dioxide 27.4 mmol/L (21.0-32.0); Chloride 97 mmol/L (98-107); Estimated GFR (African America >60 (>=60 mL/min/1.73m^2); Estimated GFR (Non-African Ame 52 (>=60 mL/min/1.73m^2); Globulin 4.6 g/dL; Glucose 79 mg/dL (74-106); Sodium 135 mmol/L (136-145); Total Protein 6.6 g/dL (6.4-8.2)
[2024-09-15 07:24] LABS: Potassium 2.7 mmol/L (3.5-5.1)
[2024-09-15] MEDS: POTASSIUM CHLORIDE 40 MEQ in 0.9 % SODIUM CHLORIDE 250 ML 67.5 MEQ IV (09:34)
[2024-09-15] MEDS: ENSURE ORIGINAL 237 ML BOTTLE PO (09:34)
[2024-09-15] MEDS: MAGNESIUM OXIDE 400 MG TABLET PO (09:35)
[2024-09-15] MEDS: ASCORBIC ACID 500 MG TABLET PO (09:35)
[2024-09-15] MEDS: BUPROPION HCL 150 MG XL TABLET 24H 300 MG PO (09:35)
[2024-09-15] MEDS: METHYLPREDNISOLONE SOD SUCC PF 40 MG/ML VIAL IVP ×2 (09:35→22:04)
[2024-09-15] MEDS: BUPRENORPHINE HCL/NALOXONE HCL 8-2 MG TABLET SUBL 1 TAB SL ×2 (09:35→22:04)
[2024-09-15] MEDS: MULTIVITAMIN TABLET 1 TAB PO (09:35)
[2024-09-15] MEDS: DULOXETINE HCL 60 MG CAPSULE.DR PO (09:35)
[2024-09-15] MEDS: POLYETHYLENE GLYCOL 3350 17 GM POWDER PACKET PO (09:35)
[2024-09-15] MEDS: SENNOSIDES/DOCUSATE SODIUM 1 TAB TABLET PO ×2 (09:35→22:03)
[2024-09-15] MEDS: GABAPENTIN 400 MG CAPSULE 800 MG PO ×2 (09:35→22:03)
[2024-09-15] MEDS: POTASSIUM CHLORIDE 10 MEQ ER TABLET 20 MEQ PO ×2 (09:35→09:36)
[2024-09-15] MEDS: FERROUS SULFATE 325 MG TABLET PO (09:36)
[2024-09-15] MEDS: MELOXICAM 7.5 MG TABLET PO (09:36)
[2024-09-15] MEDS: OMEPRAZOLE 40 MG CAPSULE.DR PO (09:36)
[2024-09-15] MEDS: BUSPIRONE HCL 10 MG TABLET 5 MG PO ×2 (09:36→22:03)
[2024-09-15] MEDS: DICLOFENAC SODIUM 1% 100 GM TUBE TOPICAL ×2 (09:37→22:02)
[2024-09-15] MEDS: CHOLECALCIFEROL (VITAMIN D3) 125 MCG/5,000 UNIT TABLET PO (09:37)
[2024-09-15] MEDS: NYSTATIN 15 GM POWDER 1 APPLIC TOPICAL ×2 (09:38→22:02)
[2024-09-15] MEDS: LEVOFLOXACIN IN DEXTROSE 5 % 750 MG/150 ML PREMIX 100 MG IV (10:53)
[2024-09-15] MEDS: FUROSEMIDE 40 MG/4 ML VIAL 80 MG IVP ×2 (10:56→22:10)
--- NOTE | 2024-09-15 11:17 | P.IMPN_ITS ---
Progress Note: A&P Assessment and Plan (1) Acute respiratory failure with hypoxia: Assessment and Plan: worse today. On 4 L O2 via NC. (2) Acute on chronic diastolic (congestive) heart failure: Assessment and Plan: Volume overload on exam. Was on Bumex drip. Switched to IV lasix 40 q12. No improvement. Increased to 80 q12. Monitor I/O, daily weight. ECHO pending. (3) Bilateral pneumonia: Assessment and Plan: Abx were discontinued with an assumption that her resp symptoms/clinical presentation was due to CHF and not PNA. Repeat CXR today shows dense infiltrates. Restarted IV levaquin Qualifiers: Lung location: unspecified part of lung Pneumonia type: due to unspecified organism Qualified Code(s): J18.9 - Pneumonia, unspecified organism (4) GERD (gastroesophageal reflux disease): Assessment and Plan: C/w omeprazole. Qualifiers: Esophagitis presence: without esophagitis Qualified Code(s): K21.9 - Gastro-esophageal reflux disease without esophagitis (5) Depression: Assessment and Plan: Stable mood. C/w home medications. Qualifiers: Active/Remission status: in full remission Depression Type: major depressive disorder Major depression recurrence: recurrent Qualified Code(s): F33.42 - Major depressive disorder, recurrent, in full remission (6) Severe protein-calorie malnutrition: Assessment and Plan: Poor nutritional status likely due to chronic disease burden, has low BMI of only 16, evidence of severe malnutrition with muscle wasting, loss of subcutaneous fat. Started on ensure. (7) Ambulatory dysfunction: Assessment and Plan: More or less bed bound since her Hip fracture last year. PT/OT eval. (8) Chronic skin ulcer, limited to breakdown of skin: Assessment and Plan: Chronic, improving as per patient. no signs of infection. c/w wound care, consult wound. Internal Medicine - PN: Subj Subjective Interval history: Seen and examined.Worse today. Appears considerably SOB at rest. O2 requirement increased to 4 L overnight Exam Constitutional Vital Signs, click to edit/add: Last Vital Signs Temp 97.8 F 09/15/24 07:46 Pulse 117 H 09/15/24 09:53 Resp 18 09/15/24 07:46 BP 100/60 09/15/24 07:46 Pulse Ox 93 L 09/15/24 07:46 O2 Del Method Nasal Cannula 09/15/24 07:46 O2 Flow Rate 4 09/15/24 07:46 General appearance: cooperative and comfortable Nutritional appearance: cachectic and underweight Respiratory Common normals: normal respiratory effort Other: Conversational dyspnea noted. Diminished lung sounds. Corae breath sounds. Cardio Common normals: regular rate, regular rhythm, S1 normal heart sound and S2 normal heart sound GI Common normals: Normal to inspection, nondistended, normoactive bowel sounds present, soft to palpation and non-tender Extremity Other: Chronic skin ulcerations b/l LE. Neuro Common normals: oriented x3, moves all extremities and no focal motor deficits Psych Common normals: mental status grossly normal, thought process normal, denies homicidal ideation and denies suicidal ideation Internal Medicine - PN: Obj Da Labs Labs: Laboratory Results - last 24 hr 09/14/24 09/14/24 09/14/24 12:23 16:25 21:47 WBC RBC Hgb Hct MCV MCH MCHC RDW Plt Count MPV Neut % (Auto) Lymph % (Auto) [place] % (Auto) Eos % (Auto) Baso % (Auto) Neut # (Auto) Lymph # (Auto) [place] # (Auto) Eos # (Auto) Baso # (Auto) Abs Immat Gran (auto) Imm/Tot Granulo (auto) Sodium Potassium Chloride Carbon Dioxide Anion Gap BUN Creatinine Est GFR ( Amer) Est GFR (Non-Af Amer) BUN/Creatinine Ratio Glucose Calcium Total Bilirubin AST ALT Alkaline Phosphatase NT-Pro-B Natriuret Pep Total Protein Albumin Globulin Albumin/Globulin Ratio POC Glucose 213 H 153 H 155 H 09/15/24 06:24 WBC 11.2 H RBC 3.74 L Hgb 9.9 L Hct 32.2 L MCV 86.1 MCH 26.5 L MCHC 30.7 RDW 16.0 H Plt Count 289 MPV 9.5 Neut % (Auto) 89.2 H Lymph % (Auto) 7.2 L [place] % (Auto) 2.9 Eos % (Auto) 0.0 L Baso % (Auto) 0.2 Neut # (Auto) 10.0 H Lymph # (Auto) 0.8 L [place] # (Auto) 0.3 Eos # (Auto) 0.0 Baso # (Auto) 0.0 Abs Immat Gran (auto) 0.06 H Imm/Tot Granulo (auto) 0.5 Sodium 135 L Potassium 2.7 L* Chloride 97 L Carbon Dioxide 27.4 Anion Gap 13.3 BUN 25.0 H Creatinine 1.03 H Est GFR ( Amer) >60 Est GFR (Non-Af Amer) 52 L BUN/Creatinine Ratio 24.3 Glucose 79 Calcium 7.8 L Total Bilirubin 0.3 AST 35 ALT 22 Alkaline Phosphatase 247 H NT-Pro-B Natriuret Pep 71006.0 H* Total Protein 6.6 Albumin 2.0 L Globulin 4.6 Albumin/Globulin Ratio 0.4 POC Glucose Urinary Catheter Management Urinary Catheter Management Urethral: Cath placed during this visit: yes Urethral indwelling: Yes Reason for continuing: measure accurate output Insertion date: 09/13/24 Insertion time: 18:00
[2024-09-15 11:48] LABS: Glucometer 127 mg/dL (74-106)
[2024-09-15] MEDS: IPRATROPIUM/ALBUTEROL SULFATE 3 ML AMPUL.NEB IH ×2 (16:20→23:08)
[2024-09-15 16:46] LABS: Glucometer 81 mg/dL (74-106)
[2024-09-15 20:27] LABS: Glucometer 125 mg/dL (74-106)
[2024-09-15] MEDS: PRIMIDONE 50 MG TABLET PO (22:04)
[2024-09-15] MEDS: INSULIN GLARGINE 300 UNIT/3 ML INSULN.PEN 10 UNIT SQ (22:05)
[2024-09-16] VITALS (22 sets, daily range): BP systolic 98–122; BP diastolic 66–72; PULSE 59–103; TEMP 36.4–37.5; O2SAT 83–97
[2024-09-16] MEDS: IPRATROPIUM/ALBUTEROL SULFATE 3 ML AMPUL.NEB IH ×4 (04:35→22:59)
[2024-09-16 05:58] LABS: Basophils Percent Auto 0.1 % (0.2-2.0); Hematocrit 32.4 % (36.0-48.0); Hemoglobin 10.2 g/dL (12.0-16.0); Immature Granulocytes Abs Auto 0.02 10^3/uL (0.00-0.03); Immature Granulocytes Pct Auto 0.3 % (0.0-0.5); Lymphocytes Absolute Auto 0.9 10^3/uL (1.2-3.8); Lymphocytes Percent Auto 12.6 % (20.5-60.0); Mean Corpuscular HGB Conc 31.5 g/dL (29.9-35.2); Mean Corpuscular Hemoglobin 26.8 pg (26.7-34.0); Mean Platelet Volume 9.3 fL (9.5-13.5); Monocytes Absolute Auto 0.2 10^3/uL (0.3-0.8); Monocytes Percent Auto 2.9 % (1.7-12.0); Neutrophils Absolute Auto 5.8 10^3/uL (1.4-6.5); Neutrophils Percent Auto 84.1 % (43.0-75.0); Platelet Count 283 10^3/uL (150-450); Red Blood Count 3.81 10^6/uL (4.20-5.40); White Blood Count 6.9 10^3/uL (4.0-11.0)
[2024-09-16 06:25] LABS: Alanine Aminotransferase 19 U/L (14-59); Albumin Globulin Ratio 0.4; Alkaline Phosphatase 212 U/L (46-116); Anion Gap 7.8; Aspartate Amino Transferase 27 U/L (15-37); BUN Creatinine Ratio 21.3; Bilirubin Total 0.4 mg/dL (0.2-1.0); Calcium 7.4 mg/dL (8.5-10.1); Carbon Dioxide 34.7 mmol/L (21.0-32.0); Chloride 98 mmol/L (98-107); Estimated GFR (African America >60 (>=60 mL/min/1.73m^2); Estimated GFR (Non-African Ame >60 (>=60 mL/min/1.73m^2); Globulin 4.6 g/dL; Glucose 69 mg/dL (74-106); Sodium 138 mmol/L (136-145); Total Protein 6.6 g/dL (6.4-8.2)
[2024-09-16 06:43] LABS: Potassium 2.5 mmol/L (3.5-5.1)
--- NOTE | 2024-09-16 07:08 | CA_ITS ---
Patient Name: FARZANA SEBSATIAN MR#: [id number] : 1945 Exam Date: 09/16/2024 Ordering Doctor: DR Derian Mehta . ECHOCARDIOGRAM REPORT PROCEDURE: CA ECHO DOPPLER COMPLETE INDICATIONS: chf COMPARISON: None. DESCRIPTION: COMPLETE ECHOCARDIOGRAM Real-time transthoracic echocardiography with 2D, M-mode, spectral and color flow Doppler performed. QUALITY: Technical quality was good. LEFT VENTRICLE: Normal left ventricle cavity size. Normal left ventricular wall thickness. Global left ventricular systolic function is severely decreased. Visual estimation of left ventricular ejection fraction is 25 %. LV EF: DIASTOLIC: Diastolic dysfunction is noted ATRIAL SEPTUM: Appears intact LEFT ATRIUM: Moderate dilatation. RIGHT ATRIUM: Normal chamber size. RIGHT VENTRICLE: Mild dilatation. Right ventricle solid function appears normal. TRICUSPID VALVE: Thickened with normal mobility. No stenosis with mild regurgitation. Mild pulmonary hypertension.RVSP 38mmHg MITRAL VALVE: Mildly thickened with normal mobility. No evidence of mitral valve stenosis. There is no mitral annular calcification. Mild mitral regurgitation. AORTIC VALVE: Normal trileaflet appearance. No visible sclerosis. Normal leaflet mobility. No evidence of aortic valve stenosis. Mild to moderate aortic regurgitation. AORTIC ROOT: Mildly dilated, Measuring 3.9cm PULMONIC VALVE: Normal thickness and mobility. No stenosis. Mild regurgitation. PERICARDIUM: Small pericardial effusion. No evidence of pericardial tamponade IVC: Collapes with inspirations. Normal size. PLEURA: CONCLUSION: Severely and globally reduced left ventricular systolic function, ejection fraction 25% Diastolic dysfunction, could not determine the degree next Mildly dilated right ventricle with normal systolic function Mild pulmonary hypertension, RVSP 38 mmHg Mild to moderate aortic insufficiency Mild mitral regurgitation Mild tricuspid regurgitation Mildly dilated aortic root, 3.9 cm Small pericardial effusion without evidence of tamponade Adult Echocardiography Procedure Report Left Ventricle LVEDD (3.7 - 5.6 cm): 5.06 cm LVESD (2.2 - 4.0 cm): 4.49 cm LVIVS thickness (0.6 - 1.2 cm): 0.80 cm LVPW thickness (0.5 - 1.0 cm): 0.66 cm e': 0.05 m/s E - e': 8.85 LVOT Max Gradient: 2.47 mm[Hg] LVOT Area (cm2): 0.79 m/s Peak Velocity (LVOT): 0.79 m/s Mean Velocity (LVOT): 0.47 m/s LVOT Diameter 2.26 cm Left Ventricular Ejection Fraction: 31.17 % Left Atrium LA Volume Index (2D A2C): 51.12 ml/m2 Left Atrium Systolic Dimension: 4.15 cm Mitral Valve MV E to A Ratio: 0.50 Mitral Valve A-Wave Peak Velocity: 0.81 m/s Mitral Valve E-Wave Peak Velocity: 0.41 m/s Right Ventricle RV Internal Diastolic Dimension: 3.10 cm Aorta AO Root Diam: 3.87 cm Ascending Ao Diam: 3.41 cm Aortic Valve AoV Area (Peak Petey): 2.25 cm2, 2.25 cm2 AoV Area (VTI): 2.35 cm2, 2.35 cm2 Deceleration Finney: 2.49 m/s2 Pressure Half-Time: 482.23 ms Peak Velocity(Antegrade Flow): 1.40 m/s Peak Gradient(Antegrade Flow): 7.87 mm[Hg] Mean Velocity(Antegrade Flow): 0.91 m/s Mean Gradient(Antegrade Flow): 3.93 mm[Hg] Velocity Time Integral: 26.83 cm Tricuspid Valve Peak Velocity (Regurgitant Flow): 2.96 m/s, 2.39 m/s, 2.67 m/s, 2.51 m/s Pulmonic Valve Mean Gradient: 2.69 mm[Hg], 0.91 mm[Hg], 1.51 mm[Hg] Mean Velocity: 0.79 m/s, 0.44 m/s, 0.59 m/s Peak Velocity: 0.88 m/s Peak Gradient: 4.74 mm[Hg], 1.75 mm[Hg], 3.09 mm[Hg] Right Atrium Right Atrium Systolic Pressure: 15.69 ml, 15.69 ml Dictated by: Ling Mancilla MD on 09/16/2024 at 13:03 Approved by: Ling Mancilla MD on 09/16/2024 at 13:14
[2024-09-16] MEDS: CHOLECALCIFEROL (VITAMIN D3) 125 MCG/5,000 UNIT TABLET PO (08:45)
[2024-09-16] MEDS: OMEPRAZOLE 40 MG CAPSULE.DR PO (08:45)
[2024-09-16] MEDS: DULOXETINE HCL 60 MG CAPSULE.DR PO (08:45)
[2024-09-16] MEDS: MULTIVITAMIN TABLET 1 TAB PO (08:45)
[2024-09-16] MEDS: MELOXICAM 7.5 MG TABLET PO (08:45)
[2024-09-16] MEDS: BUPROPION HCL 150 MG XL TABLET 24H 300 MG PO (08:45)
[2024-09-16] MEDS: ASCORBIC ACID 500 MG TABLET PO (08:46)
[2024-09-16] MEDS: MAGNESIUM OXIDE 400 MG TABLET PO (08:46)
[2024-09-16] MEDS: POTASSIUM CHLORIDE 10 MEQ ER TABLET 40 MEQ PO ×2 (08:46→20:10)
[2024-09-16] MEDS: BUPRENORPHINE HCL/NALOXONE HCL 8-2 MG TABLET SUBL 1 TAB SL ×2 (08:46→20:12)
[2024-09-16] MEDS: SENNOSIDES/DOCUSATE SODIUM 1 TAB TABLET PO ×2 (08:46→20:10)
[2024-09-16] MEDS: BUSPIRONE HCL 10 MG TABLET 5 MG PO ×2 (08:46→20:12)
[2024-09-16] MEDS: GABAPENTIN 400 MG CAPSULE 800 MG PO ×2 (08:46→20:10)
[2024-09-16] MEDS: FERROUS SULFATE 325 MG TABLET PO (08:46)
[2024-09-16] MEDS: POTASSIUM CHLORIDE 10 MEQ ER TABLET 20 MEQ PO (08:46)
[2024-09-16] MEDS: POTASSIUM CHLORIDE 40 MEQ in 0.9 % SODIUM CHLORIDE 250 ML 67.5 MEQ IV (08:47)
[2024-09-16] MEDS: POLYETHYLENE GLYCOL 3350 17 GM POWDER PACKET PO (08:47)
[2024-09-16] MEDS: METHYLPREDNISOLONE SOD SUCC PF 40 MG/ML VIAL IVP ×2 (08:47→21:02)
[2024-09-16] MEDS: DICLOFENAC SODIUM 1% 100 GM TUBE TOPICAL ×2 (08:48→20:11)
[2024-09-16] MEDS: NYSTATIN 15 GM POWDER 1 APPLIC TOPICAL ×2 (08:49→20:11)
[2024-09-16] MEDS: FUROSEMIDE 40 MG/4 ML VIAL 80 MG IVP ×2 (09:08→21:02)
--- NOTE | 2024-09-16 10:03 | CM.NOTE ---
Rounds made with Dr. Alcazar, pt having cardiac echo at this time. Dr. Alcazar will evaluate pt after echo completed.
--- NOTE | 2024-09-16 10:09 | PM.IMPN1 ---
Progress Note: A&P Assessment and Plan (1) Acute respiratory failure with hypoxia: Assessment and Plan: Feels better. Still On 4 L O2 via NC. (2) Acute on chronic diastolic (congestive) heart failure: Assessment and Plan: Improved with IV lasix 80 q12. C/w same as still volume overload. Monitor I/O, daily weight. ECHO showed reduced EF - Cardiology consulted. . (3) Bilateral pneumonia: Assessment and Plan: Abx were discontinued with an assumption that her resp symptoms/clinical presentation was due to CHF and not PNA. Repeat CXR today shows dense infiltrates. Restarted IV levaquin Qualifiers: Lung location: unspecified part of lung Pneumonia type: due to unspecified organism Qualified Code(s): J18.9 - Pneumonia, unspecified organism (4) GERD (gastroesophageal reflux disease): Assessment and Plan: C/w omeprazole. Qualifiers: Esophagitis presence: without esophagitis Qualified Code(s): K21.9 - Gastro-esophageal reflux disease without esophagitis (5) Depression: Assessment and Plan: Stable mood. C/w home medications. Qualifiers: Active/Remission status: in full remission Depression Type: major depressive disorder Major depression recurrence: recurrent Qualified Code(s): F33.42 - Major depressive disorder, recurrent, in full remission (6) Severe protein-calorie malnutrition: Assessment and Plan: Poor nutritional status likely due to chronic disease burden, has low BMI of only 16, evidence of severe malnutrition with muscle wasting, loss of subcutaneous fat. on ensure. (7) Ambulatory dysfunction: Assessment and Plan: More or less bed bound since her Hip fracture last year. PT/OT eval. (8) Chronic skin ulcer, limited to breakdown of skin: Assessment and Plan: Chronic, improving as per patient. no signs of infection. c/w wound care, consult wound. Internal Medicine - PN: Subj Subjective Interval history: Seen and examined. Feels slightly better today. No overnight events. Still requiring 4 L O2 via NC. Exam Constitutional Vital Signs, click to edit/add: Last Vital Signs Temp 98 F 09/16/24 08:23 Pulse 96 H 09/16/24 09:56 Resp 18 09/16/24 08:23 BP 122/71 09/16/24 08:23 Pulse Ox 93 L 09/16/24 09:44 O2 Del Method Nasal Cannula 09/16/24 09:44 O2 Flow Rate 4 09/16/24 08:23 General appearance: cooperative and comfortable Nutritional appearance: cachectic and underweight Respiratory Common normals: normal respiratory effort Other: Conversational dyspnea noted. Diminished lung sounds. Corae breath sounds. Cardio Common normals: regular rate, regular rhythm, S1 normal heart sound and S2 normal heart sound Extremity Other: Chronic skin ulcerations b/l LE. Neuro Common normals: oriented x3, moves all extremities and no focal motor deficits Psych Common normals: mental status grossly normal, thought process normal, denies homicidal ideation and denies suicidal ideation Internal Medicine - PN: Obj Da Labs Labs: Laboratory Results - last 24 hr 09/15/24 09/15/24 09/15/24 11:37 16:44 20:24 WBC RBC Hgb Hct MCV MCH MCHC RDW Plt Count MPV Neut % (Auto) Lymph % (Auto) [place] % (Auto) Eos % (Auto) Baso % (Auto) Neut # (Auto) Lymph # (Auto) [place] # (Auto) Eos # (Auto) Baso # (Auto) Abs Immat Gran (auto) Imm/Tot Granulo (auto) Sodium Potassium Chloride Carbon Dioxide Anion Gap BUN Creatinine Est GFR ( Amer) Est GFR (Non-Af Amer) BUN/Creatinine Ratio Glucose Calcium Total Bilirubin AST ALT Alkaline Phosphatase NT-Pro-B Natriuret Pep Total Protein Albumin Globulin Albumin/Globulin Ratio POC Glucose 127 H 81 125 H 09/16/24 05:42 WBC 6.9 RBC 3.81 L Hgb 10.2 L Hct 32.4 L MCV 85.0 MCH 26.8 MCHC 31.5 RDW 16.0 H Plt Count 283 MPV 9.3 L Neut % (Auto) 84.1 H Lymph % (Auto) 12.6 L [place] % (Auto) 2.9 Eos % (Auto) 0.0 L Baso % (Auto) 0.1 L Neut # (Auto) 5.8 Lymph # (Auto) 0.9 L [place] # (Auto) 0.2 L Eos # (Auto) 0.0 Baso # (Auto) 0.0 Abs Immat Gran (auto) 0.02 Imm/Tot Granulo (auto) 0.3 Sodium 138 Potassium 2.5 L* Chloride 98 Carbon Dioxide 34.7 H Anion Gap 7.8 BUN 19.0 H Creatinine 0.89 Est GFR ( Amer) >60 Est GFR (Non-Af Amer) >60 BUN/Creatinine Ratio 21.3 Glucose 69 L Calcium 7.4 L Total Bilirubin 0.4 AST 27 ALT 19 Alkaline Phosphatase 212 H NT-Pro-B Natriuret Pep 02238.0 H* Total Protein 6.6 Albumin 2.0 L Globulin 4.6 Albumin/Globulin Ratio 0.4 POC Glucose Urinary Catheter Management Urinary Catheter Management Urethral: Cath placed during this visit: yes Urethral indwelling: Yes Reason for continuing: measure accurate output Insertion date: 09/13/24 Insertion time: 18:00
[2024-09-16 11:43] LABS: Glucometer 96 mg/dL (74-106)
--- NOTE | 2024-09-16 11:43 | SWNOTE1 ---
Important Message from [employer] reviewed and discussed with patient. Pt. verbalized understanding and SW signed the form due to pt's shakiness in her hands. Original given to patient and copy placed in patient?s chart.
--- NOTE | 2024-09-16 11:53 | SWNOTE1 ---
SW met with pt to discuss dc needs. Pt voiced her son wants to be here to talk with SW as well, but could not come today. SW offered to call pt's son and pt is alright with this. SW did ask pt about her plans for discharge. Pt voiced she will need to go back to rehab. She stated she would prefer [facility]. SW did advise that SW will have to check if they have openings. Pt voiced understanding. SW to call pt's son.
--- NOTE | 2024-09-16 13:13 | SWNOTE1 ---
FRED reached out to Yash at [facility] in regards to pt returning and needing SNF. At this time [facility] does not have any openings. FRED called daughter, Lottie, and left her a message. SW to let pt know as well.
--- NOTE | 2024-09-16 13:35 | PC.NURSE ---
Dressings to BLE not changed this shift due to not having ordered supplies. Reporting Process Consultant called store room and they are out of xeroform.
--- NOTE | 2024-09-16 13:42 | PM.CACN ---
History of Present Illness History of Present Illness Consult date: 09/16/24 Chief complaint: Congestive heart failure Narrative: The patient is 78-year-old female without prior cardiac history. She denies history of hypertension, hyperlipidemia, or diabetes mellitus. She never been a smoker. Patient has extensive past history of venous insufficiency and nonhealing venous ulcers, malnutrition cachexia, has been in the rehab center after she had left hip fracture and surgery. The patient reports many fractures in the past. She is not weight bearing. She states that over the last few weeks she has been having progressive shortness of breath which became severe the day of the admission associated with cough and occasional phlegm. She does not think that she has fever or chills. She denies any chest pain. She was hypoxic on arrival. The chest CTA showed no PE, bilateral pleural effusion and patchy groundglass opacities likely pulmonary edema. Chest x-ray showed patchy airspace throughout the right lung and left mid and upper chest with dense consolidation within the right mid chest. BNP was significantly high at 20,000, high-sensitivity troponin 12.7, TSH high at 6.4 but normal T46.1. Albumin is low at 2. The patient reports that she eats and drinks well but she appears very cachectic. She lost a lot of weight over the years. She was started on Lasix IV 80 mg twice daily and she was initially on CPAP currently she is on oxygen at 4 L/min per nasal cannula. The patient reports that she never been on oxygen before. The patient denies palpitations or dizziness. She reports that she did not notice leg edema however the patient has Greyson wrap's around her legs. As mentioned above she denies smoking, alcohol or illicit drugs She is DNR [facility] I found old echo from 2018 at [facility] when her ejection fraction was 65% with severely dilated left atrium mild to moderate mitral rotation, moderate tricuspid rotation and mild ascending aorta 4 cm. 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 - Other disorders of plasma-protein metabolism, not elsewhere classified (ICD-10) Olecranon bursitis ?M70.20 - Olecranon bursitis, unspecified elbow (ICD-10) Osteoporosis ?M81.0 - Age-related osteoporosis without current pathological fracture (ICD-10) Cervicalgia ?M54.2 - Cervicalgia (ICD-10) Osteoarthritis ?M19.90 - Unspecified osteoarthritis, unspecified site (ICD-10) Constipation ?K59.00 - Constipation, unspecified (ICD-10) GERD (gastroesophageal reflux disease) ?K21.9 - Gastro-esophageal reflux disease without esophagitis (ICD-10) Weakness ?R53.1 - Weakness (ICD-10) Gall stones ?K80.20 - Calculus of gallbladder without cholecystitis without obstruction (ICD-10) Nonrheumatic mitral (valve) insufficiency ?I34.0 - Nonrheumatic mitral (valve) insufficiency (ICD-10) Nonrheumatic tricuspid (valve) insufficiency ?I36.1 - Nonrheumatic tricuspid (valve) insufficiency (ICD-10) Nonrheumatic aortic valve disorder ?I35.9 - Nonrheumatic aortic valve disorder, unspecified (ICD-10) MRSA (methicillin resistant Staphylococcus aureus) ?A49.02 - Methicillin resistant Staphylococcus aureus infection, unspecified site (ICD-10) Vitamin D deficiency ?E55.9 - Vitamin D deficiency, unspecified (ICD-10) Thoracic aortic ectasia ?I77.810 - Thoracic aortic ectasia (ICD-10) COVID-19 ?U07.1 - COVID-19 (ICD-10) Cardiomyopathy ?I42.9 - Cardiomyopathy, unspecified (ICD-10) CHF (congestive heart failure) ?I50.9 - Heart failure, unspecified (ICD-10) Heart disease ?I51.9 - Heart disease, unspecified (ICD-10) Hypertension ?I10 - Essential (primary) hypertension (ICD-10) Other cervical disc degeneration, unspecified cervical region ?M50.30 - Other cervical disc degeneration, unspecified cervical region (ICD-10) Pyoderma gangrenosum ?L88 - Pyoderma gangrenosum (ICD-10) Anemia ?D64.9 - Anemia, unspecified (ICD-10) Scoliosis ?M41.9 - Scoliosis, unspecified (ICD-10) Depression ?F32.A - Depression, unspecified (ICD-10) Surgical History (Updated 09/13/24 @ 20:22 by Janae Torres) History of hysterectomy ?Z90.710 - Acquired absence of both cervix and uterus (ICD-10) S/P hip replacement ?Z96.649 - Presence of unspecified artificial hip joint (ICD-10) Family History (Updated 09/13/24 @ 20:23 by Janae Torres) Father Family history of hypertension Mother Family history of hypertension Social History (Updated 09/13/24 @ 20:23 by Janae Torres) Within the past year, how often did you have a drink containing alcohol: never Score interpretation: A score less than 3 is consistent with normal alcohol consumption. Smoking status: Never smoker Non-prescribed substance use: denies use Previous occupational history: retired Highest level of school completed/degree received: Bachelor's degree Are you now , , , , never or living with a partner: In a typical week, how many times do you talk on the telephone with family, friends, or neighbors: 3 or more times per week How often do you get together with friends or relatives: 3 or more times per week Little interest or pleasure in doing things: several days Feeling down, depressed, or hopeless: several days Feel stressed/tense/nervous/anxious/difficulty sleeping: not at all Do you think of yourself as: straight/heterosexual Gender Identity: female Meds Home Medications and Allergies Home Medications ?Medication ?Instructions ?Recorded ?Confirmed ?Type acetaminophen 500 mg capsule 1,000 mg PO Q8H PRN pain 09/13/24 09/13/24 History albuterol sulfate 2.5 mg/3 mL 2.5 mg inhalation TID 09/13/24 09/13/24 History (0.083 %) solution for nebulization alendronate 70 mg tablet 70 mg PO .COMPLEX 09/13/24 09/13/24 History ascorbic acid (vitamin C) 500 mg 500 mg PO DAILY 09/13/24 09/13/24 History tablet (C-500) buprenorphine 8 mg-naloxone 2 mg 1 film sublingual BID 09/13/24 09/13/24 History sublingual film bupropion HCl 300 mg 24 hr tablet, 300 mg PO DAILY 09/13/24 09/13/24 History extended release buspirone 5 mg tablet 5 mg PO BID 09/13/24 09/13/24 History cholecalciferol (vitamin D3) 125 125 mcg PO DAILY 09/13/24 09/13/24 History mcg (5,000 unit) capsule diclofenac sodium 1 % topical gel 2 g topical BID 09/13/24 09/13/24 History duloxetine 60 mg capsule,delayed 60 mg PO DAILY 09/13/24 09/13/24 History release (Cymbalta) ferrous sulfate 325 mg (65 mg 325 mg PO DAILY 09/13/24 09/13/24 History iron) tablet (Feosol) gabapentin 800 mg tablet 800 mg PO BID 09/13/24 09/13/24 History magnesium chloride 71.5 mg 71.5 mg PO DAILY 09/13/24 09/13/24 History (magnesium chloride) tablet,delayed release (Nu-Mag) melatonin 5 mg capsule 5 mg PO .hs 09/13/24 09/13/24 History meloxicam 7.5 mg tablet 7.5 mg PO DAILY 09/13/24 09/13/24 History multivitamin (Daily Multi-Vitamin 1 tab PO DAILY 09/13/24 09/13/24 History tablet) nystatin 100,000 unit/gram topical 1 applic topical BID 09/13/24 09/13/24 History powder (Nyamyc) polyethylene glycol 3350 17 gram 17 g PO DAILY 09/13/24 09/13/24 History oral powder packet (Gavilax) potassium chloride 20 mEq 20 meq PO DAILY 09/13/24 09/13/24 History tablet,extended release (K-Tab) primidone 50 mg tablet 50 mg PO DAILY 09/13/24 09/13/24 History sennosides 8.6 mg-docusate sodium 1 tab-cap PO BID 09/13/24 09/13/24 History 50 mg tablet (Docuzen) tramadol 50 mg tablet 50 mg PO BID 09/13/24 09/13/24 History whey protein isolate 6 gram-25 1 ea PO DAILY 09/13/24 09/13/24 History kcal/7 gram oral powder (Beneprotein) Allergies Allergy/AdvReac Type Severity Reaction Status Date / Time No Known Drug Allergies Allergy Verified 09/13/24 12:41 Exam Narrative Exam Narrative: Alert, oriented, not in apparent distress but severely cachectic appearance HEENT: Within normal limits Neck: Supple normal function, lymphadenopathy, jugular venous pressure is elevated, no carotid bruit Lungs generalized decreased breath sounds however no rales rhonchi or wheezes Cardiovascular system regular rate and rhythm, normal S1 and S2, no murmur appreciated Extremities Greyson wraps around both lower extremities below the knee however did not appear to be edematous Neurological examination grossly normal Constitutional Vital Signs, click to edit/add: Last Vital Signs Temp 97.7 F 09/16/24 12:23 Pulse 95 H 09/16/24 12:23 Resp 18 09/16/24 12:23 BP 103/69 09/16/24 12:23 Pulse Ox 94 L 09/16/24 12:23 O2 Del Method Nasal Cannula 09/16/24 12:23 O2 Flow Rate 4 09/16/24 12:23 Results Labs and Meds Lab results: Cardiac Enzymes 09/16/24 Range/Units 05:42 AST 27 (15-37) U/L CBC 09/16/24 Range/Units 05:42 WBC 6.9 (4.0-11.0) 10^3/uL RBC 3.81 L (4.20-5.40) 10^6/uL Hgb 10.2 L (12.0-16.0) g/dL Hct 32.4 L (36.0-48.0) % Plt Count 283 (150-450) 10^3/uL Neut # (Auto) 5.8 (1.4-6.5) 10^3/uL Lymph # (Auto) 0.9 L (1.2-3.8) 10^3/uL Toombs # (Auto) 0.2 L (0.3-0.8) 10^3/uL Eos # (Auto) 0.0 (0.0-0.7) 10^3/uL Baso # (Auto) 0.0 (0.0-0.1) 10^3/uL Comprehensive Metabolic Panel 09/16/24 Range/Units 05:42 Sodium 138 (136-145) mmol/L Potassium 2.5 L* (3.5-5.1) mmol/L Chloride 98 (98-107) mmol/L Carbon Dioxide 34.7 H (21.0-32.0) mmol/L BUN 19.0 H (7.0-18.0) mg/dL Creatinine 0.89 (0.55-1.02) mg/dL Glucose 69 L (74-106) mg/dL Calcium 7.4 L (8.5-10.1) mg/dL AST 27 (15-37) U/L ALT 19 (14-59) U/L Alkaline Phosphatase 212 H (46-116) U/L Total Protein 6.6 (6.4-8.2) g/dL Albumin 2.0 L (3.4-5.0) g/dL Intake and Output 09/15/24 09/16/24 09/16/24 23:59 07:59 15:59 Output Total 2550 / 2550 Balance -2550 / -2550 Output: Urine Amount (Catheter) 2550 / 2550 Urethral 2550 / 2550 Other: Weight 45.8 kg EKG showed normal sinus rhythm, left axis deviation, old anterior wall infarct Echo today showed: Globally severely reduced left ventricular systolic function ejection fraction 20% Mild dilated right ventricle with normal static function Mild pulmonary hypertension next Mild to moderate aortic sufficiency Mild mitral regurgitation and mild tricuspid regurgitation Small pericardial effusion without evidence of tamponade Mildly dilated aortic root Assessment and Plan Assessment and Plan (1) Acute respiratory failure with hypoxia: Assessment and Plan: Due to acute systolic heart failure and probably underlying pneumonia (2) Acute systolic heart failure: Assessment and Plan: Echo showed ejection fraction of 25% (3) Valvular heart disease: Assessment and Plan: Including mild to moderate aortic insufficiency, mild mitral regurgitation and mild tricuspid regurgitation associated with mild pulmonary hypertension (4) Bilateral pleural effusion: Assessment and Plan: Due to acute congestive heart failure (5) Bilateral pneumonia: Qualifiers: Lung location: unspecified part of lung Pneumonia type: due to unspecified organism Qualified Code(s): J18.9 - Pneumonia, unspecified organism (6) Chronic skin ulcer, limited to breakdown of skin: Assessment and Plan: Chronic, due to prior history of venous insufficiency (7) Severe protein-calorie malnutrition: (8) GERD (gastroesophageal reflux disease): Qualifiers: Esophagitis presence: without esophagitis Qualified Code(s): K21.9 - Gastro-esophageal reflux disease without esophagitis (9) Depression: Qualifiers: Depression Type: major depressive disorder Major depression recurrence: recurrent Active/Remission status: in full remission Qualified Code(s): F33.42 - Major depressive disorder, recurrent, in full remission (10) Ambulatory dysfunction: Assessment and Plan: Probably failure to thrive (11) Iron deficiency anemia: Assessment and Plan: Patient denies history of GI bleed, probably nutritional Plan Continue diuresing with Lasix IV with close monitoring of electrolytes, renal function, and chest x-ray. Correct electrolytes to keep potassium equal or above 4 and magnesium equal to above 2 I will start losartan 25 mg daily I will start Farxiga 10 mg daily When she becomes more clinically stable we will introduce Toprol-XL or carvedilol Also consider to introduce Aldactone Usually in presence of severe cardiomyopathy cardiac catheterization is recommended to evaluate for underlying coronary artery disease, however this patient appears to be very fragile and cachectic indicating high risk of invasive procedures. Patient never had any history of angina or chest pain. At this time I think the best approach is medical treatment to get her clinically stable and probably evaluate in the future as out patient by stress test or coronary CT angiogram. It was discussed with the patient and she is agreeable
--- NOTE | 2024-09-16 13:55 | SWNOTE1 ---
FRED spoke with son Mario on the phone while in the room with pt. Initially pt's son mentioned [facility], but they then decided on [facility] as next choice. SW to check in to [facility] to see if they have openings. FRED sent email to Dione at [facility].
--- NOTE | 2024-09-16 14:04 | SWNOTE1 ---
Haleigh at [facility] returned email and they do have openings. Referral sent to [facility]. Referral included face sheet, ED note, H&P, provider notes, case management report, wound consult, nursing notes, diagnostic imaging, med list, and PT/OT notes.
--- NOTE | 2024-09-16 16:22 | SWNOTE1 ---
Ana at wanted to know if pt had her own cpap, if she would dc on IV's, and about her suboxone. FRED asked nursing who asked pt about cpap and suboxone. FRED informed Ana at that the plan is no IV's at discharge, pt does not have cpap, and she will come on her suboxone. Ana then replied asking who prescribes her Suboxone. FRED spoke with pt and she does go to pain management and sees Dr. Lara at [facility]. FRED let Ana at know this information.
[2024-09-16 16:23] LABS: Glucometer 110 mg/dL (74-106)
[2024-09-16 21:16] LABS: Glucometer 112 mg/dL (74-106)
[2024-09-16] MEDS: PRIMIDONE 50 MG TABLET PO (21:47)
[2024-09-17] VITALS (20 sets, daily range): BP systolic 100–118; BP diastolic 66–76; PULSE 84–131; TEMP 36.5–36.7; O2SAT 91–95
[2024-09-17] MEDS: IPRATROPIUM/ALBUTEROL SULFATE 3 ML AMPUL.NEB IH ×4 (04:34→22:44)
[2024-09-17 05:29] LABS: Hematocrit 35.1 % (36.0-48.0); Hemoglobin 10.7 g/dL (12.0-16.0); Immature Granulocytes Abs Auto 0.02 10^3/uL (0.00-0.03); Immature Granulocytes Pct Auto 0.3 % (0.0-0.5); Lymphocytes Absolute Auto 1.1 10^3/uL (1.2-3.8); Mean Corpuscular HGB Conc 30.5 g/dL (29.9-35.2); Mean Corpuscular Volume 85.4 fL (81.0-99.0); Mean Platelet Volume 9.6 fL (9.5-13.5); Monocytes Absolute Auto 0.2 10^3/uL (0.3-0.8); Monocytes Percent Auto 2.4 % (1.7-12.0); Neutrophils Absolute Auto 5.4 10^3/uL (1.4-6.5); Neutrophils Percent Auto 80.3 % (43.0-75.0); Platelet Count 318 10^3/uL (150-450); Red Blood Count 4.11 10^6/uL (4.20-5.40); Red Cell Distribution Width 16.1 % (11.0-15.0); White Blood Count 6.7 10^3/uL (4.0-11.0)
[2024-09-17 06:06] LABS: Alanine Aminotransferase 20 U/L (14-59); Albumin Globulin Ratio 0.4; Albumin Level 2.1 g/dL (3.4-5.0); Alkaline Phosphatase 199 U/L (46-116); Anion Gap 9.1; Aspartate Amino Transferase 23 U/L (15-37); Bilirubin Total 0.4 mg/dL (0.2-1.0); Calcium 7.5 mg/dL (8.5-10.1); Carbon Dioxide 34.6 mmol/L (21.0-32.0); Chloride 98 mmol/L (98-107); Estimated GFR (African America >60 (>=60 mL/min/1.73m^2); Estimated GFR (Non-African Ame >60 (>=60 mL/min/1.73m^2); Globulin 4.8 g/dL; Glucose 124 mg/dL (74-106); Potassium 3.7 mmol/L (3.5-5.1); Sodium 138 mmol/L (136-145); Total Protein 6.9 g/dL (6.4-8.2)
--- NOTE | 2024-09-17 06:25 | PC.NURSE ---
0625: Lab called with critical BNP 20,104. This is improving from previous labs.
[2024-09-17] MEDS: POLYETHYLENE GLYCOL 3350 17 GM POWDER PACKET PO (09:05)
[2024-09-17] MEDS: ASCORBIC ACID 500 MG TABLET PO (09:06)
[2024-09-17] MEDS: METHYLPREDNISOLONE SOD SUCC PF 40 MG/ML VIAL IVP ×2 (09:06→22:21)
[2024-09-17] MEDS: POTASSIUM CHLORIDE 10 MEQ ER TABLET 40 MEQ PO ×2 (09:06→22:22)
[2024-09-17] MEDS: CHOLECALCIFEROL (VITAMIN D3) 125 MCG/5,000 UNIT TABLET PO (09:06)
[2024-09-17] MEDS: GABAPENTIN 400 MG CAPSULE 800 MG PO ×2 (09:07→22:23)
[2024-09-17] MEDS: MAGNESIUM OXIDE 400 MG TABLET PO (09:07)
[2024-09-17] MEDS: DULOXETINE HCL 60 MG CAPSULE.DR PO (09:07)
[2024-09-17] MEDS: BUSPIRONE HCL 10 MG TABLET 5 MG PO ×2 (09:07→22:22)
[2024-09-17] MEDS: LOSARTAN POTASSIUM 25 MG TABLET PO (09:07)
[2024-09-17] MEDS: MULTIVITAMIN TABLET 1 TAB PO (09:07)
[2024-09-17] MEDS: OMEPRAZOLE 40 MG CAPSULE.DR PO (09:07)
[2024-09-17] MEDS: BUPROPION HCL 150 MG XL TABLET 24H 300 MG PO (09:07)
[2024-09-17] MEDS: FERROUS SULFATE 325 MG TABLET PO (09:07)
[2024-09-17] MEDS: MELOXICAM 7.5 MG TABLET PO (09:07)
[2024-09-17] MEDS: BUPRENORPHINE HCL/NALOXONE HCL 8-2 MG TABLET SUBL 1 TAB SL ×2 (09:07→22:23)
[2024-09-17] MEDS: SENNOSIDES/DOCUSATE SODIUM 1 TAB TABLET PO ×2 (09:07→22:22)
[2024-09-17] MEDS: FUROSEMIDE 40 MG/4 ML VIAL 80 MG IVP (09:07)
[2024-09-17] MEDS: NYSTATIN 15 GM POWDER 1 APPLIC TOPICAL ×2 (09:26→22:24)
--- NOTE | 2024-09-17 10:12 | CM.NOTE ---
Rounds made with Dr. Alcazar, no discharge today. Pt will discharge to [facility] for skilled therapy at discharge.
--- NOTE | 2024-09-17 10:23 | P.IMPN_ITS ---
Progress Note: A&P Assessment and Plan (1) Acute respiratory failure with hypoxia: Assessment and Plan: Improved with Diuresis. On 2 L O2 via NC. Does not use O2 at baseline (2) Acute on chronic combined systolic (congestive) and diastolic (congestive) heart failure: Assessment and Plan: New finding of severely reduced EF. Still volume overload but improving with IV diuresis. Cardiology consulted - outpatient w/u to evaluate for underlying CAD. (3) Bilateral pneumonia: Assessment and Plan: on IV Levaquin Qualifiers: Lung location: unspecified part of lung Pneumonia type: due to unspecified organism Qualified Code(s): J18.9 - Pneumonia, unspecified organism (4) Chronic skin ulcer, limited to breakdown of skin: Assessment and Plan: Chronic, improving as per patient. no signs of infection. c/w wound care, consult wound. (5) Severe protein-calorie malnutrition: Assessment and Plan: Poor nutritional status likely due to chronic disease burden, has low BMI of only 16, evidence of severe malnutrition with muscle wasting, loss of subcutaneous fat. on ensure. (6) GERD (gastroesophageal reflux disease): Assessment and Plan: C/w omeprazole. Qualifiers: Esophagitis presence: without esophagitis Qualified Code(s): K21.9 - Gastro-esophageal reflux disease without esophagitis (7) Depression: Assessment and Plan: Stable mood. C/w home medications. Qualifiers: Depression Type: major depressive disorder Major depression recurrence: recurrent Active/Remission status: in full remission Qualified Code(s): F33.42 - Major depressive disorder, recurrent, in full remission (8) Ambulatory dysfunction: Assessment and Plan: More or less bed bound since her Hip fracture last year. PT/OT eval. Internal Medicine - PN: Subj Subjective Interval history: Seen and examined. Improving. Now on 2L O2 via NC. Seen by Cardiology. Good UO on lasix. Exam Constitutional Vital Signs, click to edit/add: Last Vital Signs Temp 97.7 F 09/17/24 07:57 Pulse 99 H 09/17/24 10:00 Resp 18 09/17/24 07:57 BP 107/76 09/17/24 07:57 Pulse Ox 95 09/17/24 07:57 O2 Del Method Nasal Cannula 09/17/24 07:57 O2 Flow Rate 3 09/17/24 07:57 General appearance: cooperative and comfortable Nutritional appearance: cachectic and underweight Respiratory Common normals: normal respiratory effort and no use of accessory muscles Effort & inspection: able to speak in complete sentences Auscultation: diminished lung sounds Cardio Common normals: regular rate, regular rhythm, S1 normal heart sound and S2 normal heart sound Extremity Other: Chronic skin ulcerations b/l LE. Neuro Common normals: oriented x3, moves all extremities and no focal motor deficits Psych Common normals: mental status grossly normal, thought process normal, denies homicidal ideation and denies suicidal ideation Internal Medicine - PN: Obj Da Labs Labs: Laboratory Results - last 24 hr 09/16/24 09/16/24 09/16/24 11:42 16:22 21:15 WBC RBC Hgb Hct MCV MCH MCHC RDW Plt Count MPV Neut % (Auto) Lymph % (Auto) Addison % (Auto) Eos % (Auto) Baso % (Auto) Neut # (Auto) Lymph # (Auto) Addison # (Auto) Eos # (Auto) Baso # (Auto) Abs Immat Gran (auto) Imm/Tot Granulo (auto) Sodium Potassium Chloride Carbon Dioxide Anion Gap BUN Creatinine Est GFR ( Amer) Est GFR (Non-Af Amer) BUN/Creatinine Ratio Glucose Calcium Total Bilirubin AST ALT Alkaline Phosphatase NT-Pro-B Natriuret Pep Total Protein Albumin Globulin Albumin/Globulin Ratio POC Glucose 96 110 H 112 H 09/17/24 05:00 WBC 6.7 RBC 4.11 L Hgb 10.7 L Hct 35.1 L MCV 85.4 MCH 26.0 L MCHC 30.5 RDW 16.1 H Plt Count 318 MPV 9.6 Neut % (Auto) 80.3 H Lymph % (Auto) 17.0 L Addison % (Auto) 2.4 Eos % (Auto) 0.0 L Baso % (Auto) 0.0 L Neut # (Auto) 5.4 Lymph # (Auto) 1.1 L Addison # (Auto) 0.2 L Eos # (Auto) 0.0 Baso # (Auto) 0.0 Abs Immat Gran (auto) 0.02 Imm/Tot Granulo (auto) 0.3 Sodium 138 Potassium 3.7 Chloride 98 Carbon Dioxide 34.6 H Anion Gap 9.1 BUN 17.0 Creatinine 0.85 Est GFR ( Amer) >60 Est GFR (Non-Af Amer) >60 BUN/Creatinine Ratio 20.0 Glucose 124 H Calcium 7.5 L Total Bilirubin 0.4 AST 23 ALT 20 Alkaline Phosphatase 199 H NT-Pro-B Natriuret Pep 90094.0 H* Total Protein 6.9 Albumin 2.1 L Globulin 4.8 Albumin/Globulin Ratio 0.4 POC Glucose Urinary Catheter Management Urinary Catheter Management Urethral: Cath placed during this visit: yes Urethral indwelling: Yes Reason for continuing: measure accurate output Insertion date: 09/13/24 Insertion time: 18:00
[2024-09-17] MEDS: LEVOFLOXACIN IN DEXTROSE 5 % 750 MG/150 ML PREMIX 100 MG IV (10:53)
--- NOTE | 2024-09-17 10:56 | REH.PTDLY ---
Physical Therapy Daily Note PT Daily Note/Assess Start: 09/17/24 10:50 Freq: Status: Active Protocol: Document 09/17/24 10:50 GUERA (Rec: 09/17/24 10:56 GUERA [id number]) Physical Therapy Daily Note/Assessment Time In 10:19 Time Out 10:34 Subjective Pt in bed upon arrival. States she feels like there is something under her as her L thigh just hurts from something. States her head is comfortable where it is at, but agreeable to participate in therapy. Therapeutic Exercise 8 Minutes (minutes) Therapeutic Exercise 1 Units Therapeutic Exercise Instructed in B LE supine exs 10x ea as pt is able. Pt Treatment has contractures at Cuate knees and limited knee flexion and extension is noted. Once sitting instructed in marching, LAQ and hip abd slides in small range as pt struggles to perform and maintain seated balance. Therapeutic Activity 5 Minutes (minutes) Therapeutic Activity 0 Units Therapeutic Activity Mod A with supine to sit transfers. Pt requires Mod A Comments to maintain seated balance, pt tends to lean to the R side and backwards. Pt fatigue easily when sitting unsupported and performing leg exs. Mod A with sit to supine transfers and Mod A x2 with positioning in bed post rx. Total Therapy 13 Minutes Total Physical 1 Therapy Units Daily Note Summary pt continues to fatigue very easily with exs and transfers. Pt very contracted at knees, and arthritic crepitus noted in R shoulder with movement. Unable to perform standing transfer at this time due to pt fatigue. Pt is TTWB on L LE when she does attempt to stand.
[2024-09-17 11:50] LABS: Glucometer 165 mg/dL (74-106)
[2024-09-17] MEDS: 0.9 % SODIUM CHLORIDE 250 ML 10 ML IV (12:50)
--- NOTE | 2024-09-17 15:42 | SWNOTE1 ---
SW received an email today from Ana in regards to patient having a co-pay amount of $41 daily as she is in her co-pay days. FRED spoke to pt and pt's daughter about this. Pt did become tearful and unsure what to do. She has voiced that she could not afford this. She stated her and her son did apply for Medicaid, but that was only about a week ago. Pt's daughter also unsure as to what to do at this time. She stated they did start charging her at the [facility] as well and she has a bill there for around $3,000. SW stated it will likely be this way for any facility until her Medicaid comes through. FRED also advised pt and daughter that [facility] does not take Medicaid either, so at this point it may be beneficial to look in to a facility that does take Medicaid. FRED expressed to pt that SW is not sure how much longer she will need rehab and once pt reaches 100 days, Medicare will not pay anymore. Pt is on around day 56, per the [facility]. Pt is in agreement. SW let her know that [facility] does have Medicaid beds, but not sure if they have openings. SW also let her know that [facility] and [facility] in [place] also have Medicaid beds as well. Pt is alright with SW looking in to any facility at this time. FRED spoke with Clari at [facility] and she is looking over her bed situation. FRED waiting to hear back from Keyanna at [facility]. FRED left message at [facility].
--- NOTE | 2024-09-17 15:53 | SWNOTE1 ---
[facility] will review referral. SW also heard back from [facility] and they will review as well.
--- NOTE | 2024-09-17 16:31 | SWNOTE1 ---
FRED spoke to Clari at [facility] and they are able to accept, but she will need sputum results prior to patient admitting. SW to update pt and family tomorrow.
[2024-09-17 16:35] LABS: Glucometer 123 mg/dL (74-106)
[2024-09-17] MEDS: ENSURE ORIGINAL 237 ML BOTTLE PO (22:21)
[2024-09-17] MEDS: PRIMIDONE 50 MG TABLET PO (22:22)
[2024-09-17] MEDS: DICLOFENAC SODIUM 1% 100 GM TUBE TOPICAL (22:23)
[2024-09-17 22:30] LABS: Glucometer 119 mg/dL (74-106)
[2024-09-18] VITALS (11 sets, daily range): BP systolic 101–131; BP diastolic 55–68; PULSE 84–111; TEMP 36.3–37.1; O2SAT 81–95
[2024-09-18] MEDS: IPRATROPIUM/ALBUTEROL SULFATE 3 ML AMPUL.NEB IH ×2 (04:03→10:25)
[2024-09-18 06:23] LABS: Hematocrit 33.5 % (36.0-48.0); Hemoglobin 10.3 g/dL (12.0-16.0); Immature Granulocytes Abs Auto 0.02 10^3/uL (0.00-0.03); Immature Granulocytes Pct Auto 0.2 % (0.0-0.5); Lymphocytes Absolute Auto 1.1 10^3/uL (1.2-3.8); Lymphocytes Percent Auto 13.5 % (20.5-60.0); Mean Corpuscular HGB Conc 30.7 g/dL (29.9-35.2); Mean Corpuscular Hemoglobin 26.3 pg (26.7-34.0); Mean Corpuscular Volume 85.7 fL (81.0-99.0); Mean Platelet Volume 9.5 fL (9.5-13.5); Monocytes Absolute Auto 0.2 10^3/uL (0.3-0.8); Monocytes Percent Auto 2.4 % (1.7-12.0); Neutrophils Absolute Auto 6.8 10^3/uL (1.4-6.5); Neutrophils Percent Auto 83.9 % (43.0-75.0); Platelet Count 286 10^3/uL (150-450); Red Blood Count 3.91 10^6/uL (4.20-5.40); Red Cell Distribution Width 16.4 % (11.0-15.0); White Blood Count 8.1 10^3/uL (4.0-11.0)
[2024-09-18 07:05] LABS: Alanine Aminotransferase 17 U/L (14-59); Albumin Globulin Ratio 0.4; Alkaline Phosphatase 177 U/L (46-116); Anion Gap 9.7; Aspartate Amino Transferase 19 U/L (15-37); Bilirubin Total 0.4 mg/dL (0.2-1.0); Calcium 7.5 mg/dL (8.5-10.1); Carbon Dioxide 32.5 mmol/L (21.0-32.0); Chloride 97 mmol/L (98-107); Estimated GFR (African America >60 (>=60 mL/min/1.73m^2); Estimated GFR (Non-African Ame >60 (>=60 mL/min/1.73m^2); Globulin 4.7 g/dL; Glucose 134 mg/dL (74-106); Potassium 4.2 mmol/L (3.5-5.1); Sodium 135 mmol/L (136-145); Total Protein 6.7 g/dL (6.4-8.2)
[2024-09-18] MEDS: METHYLPREDNISOLONE SOD SUCC PF 40 MG/ML VIAL IVP (09:08)
[2024-09-18] MEDS: BUPROPION HCL 150 MG XL TABLET 24H 300 MG PO (09:08)
[2024-09-18] MEDS: ASCORBIC ACID 500 MG TABLET PO (09:08)
[2024-09-18] MEDS: MAGNESIUM OXIDE 400 MG TABLET PO (09:08)
[2024-09-18] MEDS: OMEPRAZOLE 40 MG CAPSULE.DR PO (09:08)
[2024-09-18] MEDS: POTASSIUM CHLORIDE 10 MEQ ER TABLET 40 MEQ PO (09:08)
[2024-09-18] MEDS: GABAPENTIN 400 MG CAPSULE 800 MG PO (09:08)
[2024-09-18] MEDS: SENNOSIDES/DOCUSATE SODIUM 1 TAB TABLET PO (09:08)
[2024-09-18] MEDS: FUROSEMIDE 40 MG TABLET PO (09:08)
[2024-09-18] MEDS: DULOXETINE HCL 60 MG CAPSULE.DR PO (09:08)
[2024-09-18] MEDS: LOSARTAN POTASSIUM 25 MG TABLET PO (09:09)
[2024-09-18] MEDS: BUPRENORPHINE HCL/NALOXONE HCL 8-2 MG TABLET SUBL 1 TAB SL (09:09)
[2024-09-18] MEDS: CHOLECALCIFEROL (VITAMIN D3) 125 MCG/5,000 UNIT TABLET PO (09:09)
[2024-09-18] MEDS: MELOXICAM 7.5 MG TABLET PO (09:09)
[2024-09-18] MEDS: MULTIVITAMIN TABLET 1 TAB PO (09:09)
[2024-09-18] MEDS: POLYETHYLENE GLYCOL 3350 17 GM POWDER PACKET PO (09:09)
[2024-09-18] MEDS: BUSPIRONE HCL 10 MG TABLET 5 MG PO (09:09)
[2024-09-18] MEDS: FERROUS SULFATE 325 MG TABLET PO (09:09)
[2024-09-18 11:07] LABS: Glucometer 398 mg/dL (74-106)
--- NOTE | 2024-09-18 11:20 | PM.DS1 ---
DS: Providers Provider Date of admission: 09/13/24 16:30 Primary care physician: RANI CHAPMAN DO Admitting clinician: Derian Mehta Attending physician on admission: Derian Mehta Consults: 09/13/24 16:50 Occupational Therapy Eval and Treat Routine Reason for consultation: Only if needed for Rehab Has provider been notified: No Physical Therapy Eval and Treat Routine Reason for consultation: Eval and Treat Has provider been notified: No 09/16/24 10:20 Consult to Cardiology Routine Reason for consultation: New HF with reduced EF. Attending physician on discharge: Shaikh Ottoniel Discharging clinician: Shaikh Ottoniel Anticipated date of discharge: 09/18/24 DS: Diagnosis Discharge Diagnosis (1) Acute respiratory failure with hypoxia: (2) Acute on chronic combined systolic (congestive) and diastolic (congestive) heart failure: (3) Bilateral pneumonia: Qualifiers: Lung location: unspecified part of lung Pneumonia type: due to unspecified organism Qualified Code(s): J18.9 - Pneumonia, unspecified organism (4) Chronic skin ulcer, limited to breakdown of skin: (5) Severe protein-calorie malnutrition: (6) GERD (gastroesophageal reflux disease): Qualifiers: Esophagitis presence: without esophagitis Qualified Code(s): K21.9 - Gastro-esophageal reflux disease without esophagitis (7) Depression: Qualifiers: Depression Type: major depressive disorder Major depression recurrence: recurrent Active/Remission status: in full remission Qualified Code(s): F33.42 - Major depressive disorder, recurrent, in full remission (8) Ambulatory dysfunction: DS: Summary Hospital Course Hospital Course: 78-year-old female presented to ER with worsening shortness of breath and was found to have acute respiratory failure with hypoxia secondary to multifocal pneumonia/acute on chronic congestive heart failure. She was hypoxic with pulse ox at 81% on arrival and and required supplemental oxygen for hypoxia. She was initially treated with Bumex drip for acute on chronic congestive heart failure along with Levaquin and Zosyn for multifocal pneumonia. She also received IV steroids and inhaled bronchodilators for COPD exacerbation. She continued to have considerable shortness of breath and hypoxia and was slow to improve. Subsequently IV Zosyn was discontinued and she was treated with Levaquin for pneumonia. After IV Bumex, she was treated with IV Lasix for volume overload. She had an echocardiogram that showed severely reduced ejection fraction that is new. She was evaluated by cardiology who recommended workup for ischemic heart disease as outpatient. Patient has already received 6 days of IV antibiotics. She will be discharged home on 3 more days of oral antibiotics. She will need oral Lasix daily and she will be started on low-dose of Toprol, losartan. She is still requiring supplementation Ox and will need 1-2 L upon discharge. Unable to do 6 min walk test as patient is not ambulatory since her hip fx. Patient needs BMP in one week. She will need to follow-up with cardiology as outpatient for her congestive heart failure to initiate and uptitrate her guideline directed medical therapy in the outpatient setting as tolerated Patient is medically stable for discharge. She will be discharged to rehab facility to continue with physical therapy and Occupational Therapy to improve her physical deconditioning/generalized weakness and improve her functional status Status at Discharge Overall status at discharge: patient is progressing back to baseline Time Spent with Patient Time attestation: Total time spent providing and/or coordinating discharge services: Time spent: greater than 30 minutes Exam Constitutional Vital Signs, click to edit/add: Last Vital Signs Temp 97.3 F L 09/18/24 04:00 Pulse 84 09/18/24 10:27 Resp 16 09/18/24 10:27 BP 106/55 09/18/24 04:00 Pulse Ox 81 L 09/18/24 10:27 O2 Del Method Nasal Cannula 09/18/24 10:27 O2 Flow Rate 1 09/18/24 10:27 General appearance: cooperative and comfortable Nutritional appearance: cachectic and underweight Respiratory Common normals: normal respiratory effort and no use of accessory muscles Effort & inspection: able to speak in complete sentences Cardio Common normals: regular rate, regular rhythm, S1 normal heart sound and S2 normal heart sound Extremity Other: Chronic skin ulcerations b/l LE. Neuro Common normals: oriented x3, moves all extremities and no focal motor deficits Psych Common normals: mental status grossly normal, thought process normal, denies homicidal ideation and denies suicidal ideation DS: Data Data Completed and Pending Labs on day of discharge: Labs from last 24 hours 09/18/24 09/18/24 09/17/24 11:04 05:40 22:29 WBC 8.1 RBC 3.91 L Hgb 10.3 L Hct 33.5 L MCV 85.7 MCH 26.3 L MCHC 30.7 RDW 16.4 H Plt Count 286 MPV 9.5 Neut % (Auto) 83.9 H Lymph % (Auto) 13.5 L [place] % (Auto) 2.4 Eos % (Auto) 0.0 L Baso % (Auto) 0.0 L Neut # (Auto) 6.8 H Lymph # (Auto) 1.1 L [place] # (Auto) 0.2 L Eos # (Auto) 0.0 Baso # (Auto) 0.0 Abs Immat Gran (auto) 0.02 Imm/Tot Granulo (auto) 0.2 Sodium 135 L Potassium 4.2 Chloride 97 L Carbon Dioxide 32.5 H Anion Gap 9.7 BUN 17.0 Creatinine 0.74 Est GFR ( Amer) >60 Est GFR (Non-Af Amer) >60 BUN/Creatinine Ratio 23.0 Glucose 134 H Calcium 7.5 L Total Bilirubin 0.4 AST 19 ALT 17 Alkaline Phosphatase 177 H NT-Pro-B Natriuret Pep 9322.0 H* Total Protein 6.7 Albumin 2.0 L Globulin 4.7 Albumin/Globulin Ratio 0.4 POC Glucose 398 H 119 H 09/17/24 09/17/24 16:33 11:47 WBC RBC Hgb Hct MCV MCH MCHC RDW Plt Count MPV Neut % (Auto) Lymph % (Auto) [place] % (Auto) Eos % (Auto) Baso % (Auto) Neut # (Auto) Lymph # (Auto) [place] # (Auto) Eos # (Auto) Baso # (Auto) Abs Immat Gran (auto) Imm/Tot Granulo (auto) Sodium Potassium Chloride Carbon Dioxide Anion Gap BUN Creatinine Est GFR ( Amer) Est GFR (Non-Af Amer) BUN/Creatinine Ratio Glucose Calcium Total Bilirubin AST ALT Alkaline Phosphatase NT-Pro-B Natriuret Pep Total Protein Albumin Globulin Albumin/Globulin Ratio POC Glucose 123 H 165 H Discharge Plan Discharge Disposition: Xfer SNF Condition: Fair Discharge Medications: New furosemide [Lasix] 40 mg tablet 40 mg PO DAILY Qty: 30 0RF losartan 25 mg tablet 25 mg PO DAILY Qty: 30 0RF metoprolol succinate [Toprol XL] 25 mg tablet extended release 24 hr 25 mg PO DAILY Qty: 30 0RF prednisone 20 mg tablet 20 mg PO DAILY Qty: 18 0RF Rx Instructions: 3 tab x 3 days, 2 tab x 3 days, 1 tab x 3 days levofloxacin 500 mg tablet 500 mg PO DAILY 3 Days Qty: 3 0RF Continued alendronate 70 mg tablet 70 mg PO .COMPLEX Rx Instructions: 70 mg orally once a day on monday; buprenorphine-naloxone 8-2 mg film 1 film sublingual BID bupropion HCl 300 mg tablet extended release 24 hr 300 mg PO DAILY acetaminophen 500 mg capsule 1,000 mg PO Q8H PRN (Reason: pain) albuterol sulfate 2.5 mg /3 mL (0.083 %) solution for nebulization 2.5 mg inhalation TID Beneprotein 6 gram-25 kcal/7 gram powder 1 ea PO DAILY buspirone 5 mg tablet 5 mg PO BID cholecalciferol (vitamin D3) 125 mcg (5,000 unit) capsule 125 mcg PO DAILY sennosides-docusate sodium [Docuzen] 8.6-50 mg tablet 1 tab-cap PO BID Nu-Mag 71.5 mg tablet,delayed release (DR/EC) 71.5 mg PO DAILY tramadol 50 mg tablet 50 mg PO BID ascorbic acid (vitamin C) [C-500] 500 mg tablet 500 mg PO DAILY diclofenac sodium 1 % gel 2 g topical BID Rx Instructions: apply to single elbow, wrist or hand; for hand includes palm/fingers/back of hand duloxetine [Cymbalta] 60 mg capsule,delayed release(DR/EC) 60 mg PO DAILY ferrous sulfate [Feosol] 325 mg (65 mg iron) tablet 325 mg PO DAILY gabapentin 800 mg tablet 800 mg PO BID melatonin 5 mg capsule 5 mg PO .hs meloxicam 7.5 mg tablet 7.5 mg PO DAILY multivitamin [Daily Multi-Vitamin] Tablet 1 tab PO DAILY nystatin [Nyamyc] 100,000 unit/gram powder 1 applic topical BID polyethylene glycol 3350 [Gavilax] 17 gram powder in packet 17 g PO DAILY potassium chloride [K-Tab] 20 mEq tablet extended release 20 meq PO DAILY primidone 50 mg tablet 50 mg PO DAILY Rx Instructions: administer on days 4, 5, and 6 of therapy Print Language: Amharic Forms: Portal Instructions Follow Up Appointments: F/u with PCP in one week F/u with Cardiology in 2 weeks Needs BMP in 1 week
--- NOTE | 2024-09-18 11:28 | CM.NOTE ---
Rounds made with Dr. Alcazar. Plan for discharge today to [facility]. Understanding verbalized by Ms. Pereira.
--- NOTE | 2024-09-18 12:05 | SWNOTE1 ---
[facility] and they are going to put her in an isolation room even though she tested negative for Covid and Flu. FRED called and set up [facility] for 3:15. FRED notified Clari at [facility] and nursing. FRED attempted to call pt's son and daughter, no answer and not able to leave message on either phone. FRED completed PASR online.
--- NOTE | 2024-09-18 12:15 | SWNOTE1 ---
SW completed PASRR. Pt is going to [facility] skilled.
--- NOTE | 2024-09-18 12:16 | SWNOTE1 ---
SW attempted pt's son and daughter again, no answer.
--- NOTE | 2024-09-18 15:21 | OT.DAILY ---
Occupational Therapy Daily Note OT Inpatient Daily Visit Note Start: 09/16/24 09:29 Freq: Status: Active Protocol: Document 09/18/24 15:09 [id number] (Rec: 09/18/24 15:19 [id number]) OT Visit Details Time In/Time Out Time In 11:22 Time Out 11:45 OT Treatment Plan Subjective Subjective I am doing good this morning Pt eager to participate with encouragement. AAOx4. Objective Objective Pt agreeable to complete self-care tasks while sitting on EOB. Max A x2 for supine to EOB. Able to maintain LAUREN with Mod A while sitting. Completed oral hygiene with set-up assist. Good cleaning of oral cavity and dentures. Sitting tolerance of 3-5x mins. Pt agreeable to move and align extremities for UB dressing, Mod A and tactile cues to maintain accuracy. Max A x2 from EOB to supine. Pt Assessment Assessment Pt agreeable and cooperative. Pt is lacking confidence in strength and endurance for self-care tasks. Pt left in bed comfortably, call light within reach. OT Electrical Assembler Timed Codes [facility] 23 Management minutes ( minutes) [facility] 1 Management units
== END 2024-09-18 16:30 | DRG 193 ==
LOC: ER 14:11 → MS 09-14 09:57
PROVIDERS: Family Medicine; Admitting Provider Internal Medicine; Emergency Provider Emergency Medicine; PCP Family Medicine; Visit Provider Internal Medicine
DX: J18.9 Pneumonia, unspecified organism (principal); E43 Unspecified severe protein-calorie malnutrition; J96.01 Acute respiratory failure with hypoxia; I50.43 Acute on chronic combined systolic (congestive) and diastolic (congestive) heart failure; E87.1 Hypo-osmolality and hyponatremia; Z68.1 Body mass index [BMI] 19.9 or less, adult; L97.821 Non-pressure chronic ulcer of other part of left lower leg limited to breakdown of skin; L97.811 Non-pressure chronic ulcer of other part of right lower leg limited to breakdown of skin; J44.1 Chronic obstructive pulmonary disease with (acute) exacerbation; J44.0 Chronic obstructive pulmonary disease with (acute) lower respiratory infection; I11.0 Hypertensive heart disease with heart failure; L89.151 Pressure ulcer of sacral region, stage 1; Z66 Do not resuscitate; K21.9 Gastro-esophageal reflux disease without esophagitis; F33.42 Major depressive disorder, recurrent, in full remission; D50.9 Iron deficiency anemia, unspecified; G89.4 Chronic pain syndrome; Z74.01 Bed confinement status; Z79.899 Other long term (current) drug therapy; Z79.83 Long term (current) use of bisphosphonates; Z79.1 Long term (current) use of non-steroidal anti-inflammatories (NSAID); Z79.891 Long term (current) use of opiate analgesic
CPT/HCPCS: 36415; 36569; 36592; 36600; 51702; 71045; 71275; 80053; 81001; 82805; 82948; 83605; 83880; 84436; 84443; 84484; 85025; 85610; 87070; 87804; 87811; 93005; 93306; 94640; 94667; 94668; 94761; 94762; 96365; 96375; 97110; 97161; 97165; 97535; 99285; C1887; G0328; J0574; J1940; J2405; J2543; J2919; J3480; Q9967

== ENCOUNTER 2024-09-28 09:15 | Outpatient (REF) | payer MEDICARE, OTHER, SELFPAY ==
[2024-09-28 11:33] LABS: Bilirubin Urine NEGATIVE (NEGATIVE); Blood Urine LARGE (NEGATIVE); Clarity Urine CLEAR (CLEAR); Color Urine YELLOW (YELLOW); Glucose Urine UA NEGATIVE (NEGATIVE); Ketones Urine NEGATIVE (NEGATIVE); Leukocyte Esterase Urine LARGE (NEGATIVE); Nitrite Urine NEGATIVE (NEGATIVE); Protein Urine 30 mg/dL (NEG/TRACE); Urobilinogen Urine 0.2 EU/dL (0.2-1.0)
[2024-09-28 11:58] LABS: Alanine Aminotransferase 14 U/L (14-59); Albumin Globulin Ratio 0.5; Albumin Level 1.9 g/dL (3.4-5.0); Alkaline Phosphatase 128 U/L (46-116); Anion Gap 17.8; Aspartate Amino Transferase 22 U/L (15-37); BUN Creatinine Ratio 49.4; Bilirubin Total 0.3 mg/dL (0.2-1.0); Calcium 10.4 mg/dL (8.5-10.1); Carbon Dioxide 18.9 mmol/L (21.0-32.0); Chloride 107 mmol/L (98-107); Estimated GFR (African America >60 (>=60 mL/min/1.73m^2); Estimated GFR (Non-African Ame >60 (>=60 mL/min/1.73m^2); Globulin 3.7 g/dL; Glucose 110 mg/dL (74-106); Potassium 4.7 mmol/L (3.5-5.1); Sodium 139 mmol/L (136-145); Total Protein 5.6 g/dL (6.4-8.2)
== END 2024-09-28 09:16 | disposition home or self-care (01) ==
LOC: LAB 09:15
PROVIDERS: PCP Family Medicine; Visit Provider Family Medicine
DX: E87.6 Hypokalemia (principal); N39.0 Urinary tract infection, site not specified
CPT/HCPCS: 36415; 80053; 81003